=== PATIENT | female | born 1935 | race Caucasian/White ===

== ENCOUNTER 2017-07-28 14:26 | Inpatient (IN) ==
[2017-07-28] MEDS ORDERED: FUROSEMIDE 20 MG/2 ML VIAL IV PRN (14:37)
[2017-07-28] MEDS ORDERED: SODIUM CHLORIDE 0.9% 250 ML IV PRN (14:37)
[2017-07-28] MEDS ORDERED: DEXTROSE 50% 25 GM/50 ML VIAL IV PRN (14:37)
[2017-07-28] MEDS ORDERED: ONDANSETRON 4 MG/2 ML VIAL IV PRN (14:37)
[2017-07-28] MEDS ORDERED: GLUCAGON 1 MG VIAL IM PRN (14:37)
[2017-07-28] MEDS ORDERED: ACETAMINOPHEN 325 MG TABLET PO PRN (14:37)
[2017-07-28] MEDS: INSULIN LISPRO 100 UNIT/ML SUBCUT SCH ×2 (17:45→20:39)
[2017-07-28] MEDS ORDERED: NITROGLYCERIN SL 0.4 MG TABLET SL PRN (17:56)
[2017-07-28] MEDS ORDERED: traMADol 50 MG TABLET PO PRN (17:56)
[2017-07-28] MEDS: TORSEMIDE 20 MG TABLET PO SCH (20:39)
[2017-07-28] MEDS: INSULIN GLARGINE 100 UNIT/ML SUBCUT SCH (20:39)
[2017-07-28] MEDS: FLUTICASONE/SALMETEROL 500-50 DISKUS 14 DOSE INH SCH (20:39)
[2017-07-28] MEDS: DOCUSATE SODIUM 100 MG CAPSULE PO SCH (20:39)
[2017-07-28] MEDS: ATORVASTATIN 40 MG TABLET PO SCH (20:39)
[2017-07-28] MEDS ORDERED: NON-FORMULARY MEDICATION (Esomeprazole Magnesium [Nexium] 40 MG) PO SCH (21:00)
[2017-07-28] MEDS: METOPROLOL SUCCINATE XL 50 MG TABLET PO SCH (21:07)
[2017-07-29] MEDS: GABAPENTIN 100 MG CAPSULE PO PRN ×3 (01:27→20:45)
[2017-07-29 02:50] LABS: Basophils % 0.3 % (0.0-0.8); Eosinophils # 0.2 10*3/uL (0.0-0.87); Immature Granulocytes % 0.5 %; Immature Granulocytes Absolute 0.04 #; Lymphocytes # 1.5 10*3/uL (1.4-4.0); Lymphocytes % 20.5 % (21.3-54.2); Mean Corpuscular HGB Conc 31.6 GM/DL (32-36); Mean Corpuscular Hemoglobin 31 PG (27-34); Mean Corpuscular Volume 99.5 FL (87-102); Mean Platelet Volume 11.4 FL (9.6-12.0); Monocytes # 0.8 10*3/uL (0.11-0.8); Monocytes % 10.8 % (1.7-12.7); Neutrophils # 4.9 10*3/uL (1.4-7.4); Neutrophils % 65.9 % (38.7-73.9); Platelet Count 212 T/CUMM (130-400); Red Blood Count 1.91 MC/CUMM (3.8-5.5); Red Cell Distribution Width 16.4 % (9.3-17.3); White Blood Count 7.4 T/CUMM (4-12)
[2017-07-29 03:24] LABS: Calcium 8.1 MG/DL (8.5-10.1); Potassium 4.6 MMOL/L (3.5-5.1)
[2017-07-29] MEDS: LEVOTHYROXINE 75 MCG TABLET PO SCH (06:36)
[2017-07-29] MEDS: INSULIN LISPRO 100 UNIT/ML SUBCUT SCH ×8 (08:07→20:20)
[2017-07-29] MEDS: FERROUS SULFATE 325 MG TABLET PO SCH (09:05)
[2017-07-29] MEDS: MAGNESIUM OXIDE 400 MG TABLET PO SCH (09:05)
[2017-07-29] MEDS: DOCUSATE SODIUM 100 MG CAPSULE PO SCH ×2 (09:06→20:19)
[2017-07-29] MEDS: METOPROLOL SUCCINATE XL 50 MG TABLET PO SCH ×3 (09:06→20:35)
[2017-07-29] MEDS: FEBUXOSTAT 80 MG TABLET PO SCH (09:06)
[2017-07-29] MEDS: DILTIAZEM CD 120 MG CAPSULE PO SCH (09:06)
[2017-07-29] MEDS: ASCORBIC ACID 500 MG TABLET PO SCH (09:06)
[2017-07-29] MEDS: CALCIUM (CARBONATE) 500 MG TABLET PO SCH (09:06)
[2017-07-29] MEDS: MULTIVITAMIN (OCUVITE) TABLET PO SCH (09:07)
[2017-07-29] MEDS: PANTOPRAZOLE 40 MG TABLET PO SCH (09:07)
[2017-07-29] MEDS: INSULIN GLARGINE 100 UNIT/ML SUBCUT SCH ×2 (09:07→20:35)
[2017-07-29] MEDS: ISOSORBIDE MONONITRATE 30 MG TABLET PO SCH (09:07)
[2017-07-29] MEDS: SPIRONOLACTONE 25 MG TABLET PO SCH (09:07)
[2017-07-29] MEDS: FLUTICASONE/SALMETEROL 500-50 DISKUS 14 DOSE INH SCH ×2 (09:09→20:35)
[2017-07-29] MEDS: TORSEMIDE 20 MG TABLET PO SCH ×2 (09:09→20:34)
[2017-07-29] MEDS: ATORVASTATIN 40 MG TABLET PO SCH (20:35)
[2017-07-30 05:40] LABS: Basophils % 0.5 % (0.0-0.8); Eosinophils # 0.2 10*3/uL (0.0-0.87); Eosinophils % 3.4 % (0.00-10.9); Hematocrit 23.8 VOL% (35.7-47.0); Immature Granulocytes % 0.5 %; Immature Granulocytes Absolute 0.03 #; Lymphocytes # 1.2 10*3/uL (1.4-4.0); Mean Corpuscular HGB Conc 31.9 GM/DL (32-36); Mean Corpuscular Hemoglobin 30 PG (27-34); Mean Corpuscular Volume 94.8 FL (87-102); Mean Platelet Volume 11.1 FL (9.6-12.0); Monocytes # 0.7 10*3/uL (0.11-0.8); Monocytes % 11.8 % (1.7-12.7); Neutrophils # 3.7 10*3/uL (1.4-7.4); Neutrophils % 62.8 % (38.7-73.9); Platelet Count 180 T/CUMM (130-400); White Blood Count 5.9 T/CUMM (4-12)
[2017-07-30 06:07] LABS: Calcium 7.8 MG/DL (8.5-10.1); Osmolality,Calculated 296.4 MOS/KG (273-304); Potassium 4.2 MMOL/L (3.5-5.1)
[2017-07-30 06:14] LABS: Hemoglobin 7.6 GM/DL (12.0-16.0); Red Blood Count 2.51 MC/CUMM (3.8-5.5)
[2017-07-30] MEDS: LEVOTHYROXINE 75 MCG TABLET PO SCH (06:20)
[2017-07-30] MEDS: INSULIN GLARGINE 100 UNIT/ML SUBCUT SCH ×2 (07:44→21:14)
[2017-07-30] MEDS: INSULIN LISPRO 100 UNIT/ML SUBCUT SCH ×7 (07:53→21:14)
[2017-07-30] MEDS: FEBUXOSTAT 80 MG TABLET PO SCH (09:46)
[2017-07-30] MEDS: MAGNESIUM OXIDE 400 MG TABLET PO SCH (09:47)
[2017-07-30] MEDS: CALCIUM (CARBONATE) 500 MG TABLET PO SCH (09:47)
[2017-07-30] MEDS: MULTIVITAMIN (OCUVITE) TABLET PO SCH (09:49)
[2017-07-30] MEDS: FERROUS SULFATE 325 MG TABLET PO SCH (09:50)
[2017-07-30] MEDS: SPIRONOLACTONE 25 MG TABLET PO SCH (09:50)
[2017-07-30] MEDS: GABAPENTIN 100 MG CAPSULE PO PRN (09:50)
[2017-07-30] MEDS: ISOSORBIDE MONONITRATE 30 MG TABLET PO SCH (09:51)
[2017-07-30] MEDS: DILTIAZEM CD 120 MG CAPSULE PO SCH (09:52)
[2017-07-30] MEDS: PANTOPRAZOLE 40 MG TABLET PO SCH (09:54)
[2017-07-30] MEDS: DOCUSATE SODIUM 100 MG CAPSULE PO SCH ×2 (09:54→20:48)
[2017-07-30] MEDS: ASCORBIC ACID 500 MG TABLET PO SCH (09:59)
[2017-07-30] MEDS: METOPROLOL SUCCINATE XL 50 MG TABLET PO SCH ×3 (10:00→20:48)
[2017-07-30] MEDS: FLUTICASONE/SALMETEROL 500-50 DISKUS 14 DOSE INH SCH ×2 (10:01→20:55)
[2017-07-30] MEDS: TORSEMIDE 20 MG TABLET PO SCH ×2 (13:10→20:54)
[2017-07-30] MEDS ORDERED: SODIUM CHLORIDE 0.9% 250 ML IV PRN (13:56)
[2017-07-30] MEDS ORDERED: FUROSEMIDE 20 MG/2 ML VIAL IV ONE (13:57)
[2017-07-30 18:44] LABS: Apearance,Urine CLEAR (Clear); Bilirubin,Urine Negative (Negative); Blood, Urine Negative (Negative); Glucose,Urine (UA) Negative (Negative); Ketones,Urine Negative (Negative); Mucus,Urine Occasional /LPF (Occasional); Nitrite,Urine Negative (Negative); Protein,Urine Negative; RBC,Urine <1 /HPF (0-4); Squamous Epithelial Cell,Urine Occasional /HPF (0-10); Urine Color Yellow (Yellow); Urine Specific Gravity 1.006 (1.001-1.035); Urine Urobilinogen < 2.0 EU/DL (0.2-1.0); WBC,Urine 1 /HPF (0-6)
[2017-07-30] MEDS: ATORVASTATIN 40 MG TABLET PO SCH (20:48)
[2017-07-31 05:27] LABS: Basophils % 0.5 % (0.0-0.8); Eosinophils # 0.2 10*3/uL (0.0-0.87); Eosinophils % 4.1 % (0.00-10.9); Hematocrit 23.5 VOL% (35.7-47.0); Hemoglobin 7.6 GM/DL (12.0-16.0); Immature Granulocytes % 0.4 %; Immature Granulocytes Absolute 0.02 #; Lymphocytes # 1.3 10*3/uL (1.4-4.0); Lymphocytes % 22.5 % (21.3-54.2); Mean Corpuscular HGB Conc 32.3 GM/DL (32-36); Mean Corpuscular Hemoglobin 31 PG (27-34); Mean Corpuscular Volume 95.5 FL (87-102); Mean Platelet Volume 11.1 FL (9.6-12.0); Monocytes # 0.6 10*3/uL (0.11-0.8); Monocytes % 10.8 % (1.7-12.7); Neutrophils # 3.5 10*3/uL (1.4-7.4); Neutrophils % 61.7 % (38.7-73.9); Platelet Count 178 T/CUMM (130-400); Red Blood Count 2.46 MC/CUMM (3.8-5.5); Red Cell Distribution Width 16.9 % (9.3-17.3); White Blood Count 5.7 T/CUMM (4-12)
[2017-07-31 05:54] LABS: Calcium 8.5 MG/DL (8.5-10.1); Osmolality,Calculated 294.4 MOS/KG (273-304); Potassium 4.3 MMOL/L (3.5-5.1)
[2017-07-31 06:03] LABS: Free T4 (Free Thyroxine) 0.99 NG/DL (0.76-1.46); Thyroid Stimulating Hormone 14.5 uIU/ml (0.358-3.74)
[2017-07-31] MEDS: LEVOTHYROXINE 75 MCG TABLET PO SCH (07:12)
[2017-07-31] MEDS: INSULIN GLARGINE 100 UNIT/ML SUBCUT SCH ×2 (07:30→20:58)
[2017-07-31] MEDS: INSULIN LISPRO 100 UNIT/ML SUBCUT SCH ×7 (07:30→21:05)
[2017-07-31] MEDS: MULTIVITAMIN (OCUVITE) TABLET PO SCH (09:01)
[2017-07-31] MEDS: FEXOFENADINE 180 MG TABLET PO PRN (09:01)
[2017-07-31] MEDS: MAGNESIUM OXIDE 400 MG TABLET PO SCH (09:01)
[2017-07-31] MEDS: ISOSORBIDE MONONITRATE 30 MG TABLET PO SCH (09:02)
[2017-07-31] MEDS: CALCIUM (CARBONATE) 500 MG TABLET PO SCH (09:02)
[2017-07-31] MEDS: ASCORBIC ACID 500 MG TABLET PO SCH (09:02)
[2017-07-31] MEDS: SPIRONOLACTONE 25 MG TABLET PO SCH (09:03)
[2017-07-31] MEDS: METOPROLOL SUCCINATE XL 50 MG TABLET PO SCH ×3 (09:03→20:57)
[2017-07-31] MEDS: PANTOPRAZOLE 40 MG TABLET PO SCH (09:03)
[2017-07-31] MEDS: FEBUXOSTAT 80 MG TABLET PO SCH (09:03)
[2017-07-31] MEDS: FLUTICASONE/SALMETEROL 500-50 DISKUS 14 DOSE INH SCH ×2 (09:04→20:58)
[2017-07-31] MEDS: DOCUSATE SODIUM 100 MG CAPSULE PO SCH ×2 (09:04→20:58)
[2017-07-31] MEDS: FERROUS SULFATE 325 MG TABLET PO SCH (09:04)
[2017-07-31] MEDS: DILTIAZEM CD 120 MG CAPSULE PO SCH (09:05)
[2017-07-31] MEDS ORDERED: FUROSEMIDE 20 MG/2 ML VIAL IV ONE (10:00)
[2017-07-31] MEDS: TORSEMIDE 20 MG TABLET PO SCH ×2 (12:08→20:57)
[2017-07-31 20:13] LABS: Hematocrit 29.6 VOL% (35.7-47.0)
[2017-07-31 20:17] LABS: Hemoglobin 9.6 GM/DL (12.0-16.0)
[2017-07-31] MEDS: GABAPENTIN 100 MG CAPSULE PO PRN (20:57)
[2017-07-31] MEDS: ATORVASTATIN 40 MG TABLET PO SCH (20:58)
[2017-08-01 03:03] LABS: Basophils % 0.5 % (0.0-0.8); Eosinophils # 0.3 10*3/uL (0.0-0.87); Eosinophils % 4.1 % (0.00-10.9); Hematocrit 29.7 VOL% (35.7-47.0); Hemoglobin 9.7 GM/DL (12.0-16.0); Immature Granulocytes % 0.5 %; Immature Granulocytes Absolute 0.04 #; Lymphocytes # 1.5 10*3/uL (1.4-4.0); Lymphocytes % 19.2 % (21.3-54.2); Mean Corpuscular HGB Conc 32.7 GM/DL (32-36); Mean Corpuscular Hemoglobin 31 PG (27-34); Mean Platelet Volume 11.2 FL (9.6-12.0); Monocytes # 0.8 10*3/uL (0.11-0.8); Monocytes % 9.8 % (1.7-12.7); Neutrophils # 5.1 10*3/uL (1.4-7.4); Neutrophils % 65.9 % (38.7-73.9); Platelet Count 197 T/CUMM (130-400); Red Blood Count 3.16 MC/CUMM (3.8-5.5); Red Cell Distribution Width 17.3 % (9.3-17.3); White Blood Count 7.8 T/CUMM (4-12)
[2017-08-01 03:19] LABS: Calcium 8.5 MG/DL (8.5-10.1); Osmolality,Calculated 292.5 MOS/KG (273-304); Potassium 4.6 MMOL/L (3.5-5.1)
[2017-08-01] MEDS: INSULIN LISPRO 100 UNIT/ML SUBCUT SCH ×7 (07:48→20:47)
[2017-08-01] MEDS: METOPROLOL SUCCINATE XL 50 MG TABLET PO SCH ×3 (08:37→20:45)
[2017-08-01] MEDS: INSULIN GLARGINE 100 UNIT/ML SUBCUT SCH ×2 (09:01→20:45)
[2017-08-01] MEDS ORDERED: PROPOFOL 200 MG/20 ML VIAL IV ONE (12:17)
[2017-08-01] MEDS ORDERED: LIDOCAINE 2% 5 ML VIAL ONE (12:17)
[2017-08-01] MEDS: TORSEMIDE 20 MG TABLET PO SCH ×2 (12:32→20:45)
[2017-08-01] MEDS: FLUTICASONE/SALMETEROL 500-50 DISKUS 14 DOSE INH SCH ×3 (12:32→20:47)
[2017-08-01] MEDS: LEVOTHYROXINE 75 MCG TABLET PO SCH (13:43)
[2017-08-01] MEDS: DOCUSATE SODIUM 100 MG CAPSULE PO SCH ×2 (14:11→20:51)
[2017-08-01] MEDS: FEBUXOSTAT 80 MG TABLET PO SCH (14:15)
[2017-08-01] MEDS: MAGNESIUM OXIDE 400 MG TABLET PO SCH (14:16)
[2017-08-01] MEDS: CALCIUM (CARBONATE) 500 MG TABLET PO SCH (14:16)
[2017-08-01] MEDS: MULTIVITAMIN (OCUVITE) TABLET PO SCH (14:16)
[2017-08-01] MEDS: ASCORBIC ACID 500 MG TABLET PO SCH (14:16)
[2017-08-01] MEDS: SPIRONOLACTONE 25 MG TABLET PO SCH (14:17)
[2017-08-01] MEDS: DILTIAZEM CD 120 MG CAPSULE PO SCH (14:17)
[2017-08-01] MEDS: ISOSORBIDE MONONITRATE 30 MG TABLET PO SCH (14:17)
[2017-08-01] MEDS: FERROUS SULFATE 325 MG TABLET PO SCH (14:17)
[2017-08-01] MEDS: PANTOPRAZOLE 40 MG TABLET PO SCH (14:17)
[2017-08-01] MEDS: ATORVASTATIN 40 MG TABLET PO SCH (20:45)
[2017-08-01] MEDS: FEXOFENADINE 180 MG TABLET PO PRN (20:50)
[2017-08-02] MEDS: LEVOTHYROXINE 75 MCG TABLET PO SCH (06:31)
[2017-08-02 06:58] LABS: Basophils % 0.4 % (0.0-0.8); Eosinophils # 0.4 10*3/uL (0.0-0.87); Eosinophils % 3.4 % (0.00-10.9); Hematocrit 29.9 VOL% (35.7-47.0); Hemoglobin 9.6 GM/DL (12.0-16.0); Immature Granulocytes % 0.6 %; Immature Granulocytes Absolute 0.06 #; Lymphocytes # 1.4 10*3/uL (1.4-4.0); Lymphocytes % 13.9 % (21.3-54.2); Mean Corpuscular HGB Conc 32.1 GM/DL (32-36); Mean Corpuscular Hemoglobin 31 PG (27-34); Mean Corpuscular Volume 94.9 FL (87-102); Mean Platelet Volume 11.2 FL (9.6-12.0); Monocytes # 0.9 10*3/uL (0.11-0.8); Monocytes % 8.9 % (1.7-12.7); Neutrophils # 7.5 10*3/uL (1.4-7.4); Neutrophils % 72.8 % (38.7-73.9); Platelet Count 183 T/CUMM (130-400); Red Blood Count 3.15 MC/CUMM (3.8-5.5); Red Cell Distribution Width 17.1 % (9.3-17.3); White Blood Count 10.3 T/CUMM (4-12)
[2017-08-02 07:33] LABS: Calcium 8.3 MG/DL (8.5-10.1); Osmolality,Calculated 290.5 MOS/KG (273-304); Potassium 4.3 MMOL/L (3.5-5.1)
[2017-08-02] MEDS: INSULIN LISPRO 100 UNIT/ML SUBCUT SCH ×4 (08:45→13:46)
[2017-08-02] MEDS: DOCUSATE SODIUM 100 MG CAPSULE PO SCH (09:48)
[2017-08-02] MEDS: CALCIUM (CARBONATE) 500 MG TABLET PO SCH (09:50)
[2017-08-02] MEDS: SPIRONOLACTONE 25 MG TABLET PO SCH (09:51)
[2017-08-02] MEDS: INSULIN GLARGINE 100 UNIT/ML SUBCUT SCH (09:51)
[2017-08-02] MEDS: METOPROLOL SUCCINATE XL 50 MG TABLET PO SCH (09:52)
[2017-08-02] MEDS: ISOSORBIDE MONONITRATE 30 MG TABLET PO SCH (09:52)
[2017-08-02] MEDS: PANTOPRAZOLE 40 MG TABLET PO SCH (09:53)
[2017-08-02] MEDS: FERROUS SULFATE 325 MG TABLET PO SCH (09:54)
[2017-08-02] MEDS: ASCORBIC ACID 500 MG TABLET PO SCH (09:54)
[2017-08-02] MEDS: DILTIAZEM CD 120 MG CAPSULE PO SCH (09:55)
[2017-08-02] MEDS: TORSEMIDE 20 MG TABLET PO SCH (09:55)
[2017-08-02] MEDS: FEBUXOSTAT 80 MG TABLET PO SCH (09:56)
[2017-08-02] MEDS: MULTIVITAMIN (OCUVITE) TABLET PO SCH (09:56)
[2017-08-02] MEDS: MAGNESIUM OXIDE 400 MG TABLET PO SCH (09:56)
[2017-08-02] MEDS: FLUTICASONE/SALMETEROL 500-50 DISKUS 14 DOSE INH SCH (09:58)
[2017-08-02 11:55] VITALS: BP 109/78
== END 2017-08-02 13:05 | disposition home health service (06) | DRG 300 ==
LOC: N.CC 15:25 → N.4E 07-29 16:00
PROVIDERS: ADMIT Internal Medicine; ATTEND Internal Medicine

== ENCOUNTER 2017-09-05 15:29 | Inpatient (IN) ==
[2017-09-05] MEDS ORDERED: GLUCAGON 1 MG VIAL IM PRN (15:38)
[2017-09-05] MEDS ORDERED: ONDANSETRON 4 MG/2 ML VIAL IV PRN (15:38)
[2017-09-05] MEDS ORDERED: DEXTROSE 50% 25 GM/50 ML VIAL IV PRN (15:38)
[2017-09-05] MEDS ORDERED: SODIUM CHLORIDE 0.9% 1,000 ML IV PRN (15:40)
[2017-09-05] MEDS ORDERED: FUROSEMIDE 40 MG/4 ML VIAL IV PRN (15:40)
[2017-09-05] MEDS ORDERED: FUROSEMIDE 40 MG/4 ML VIAL IV ONE (15:42)
[2017-09-05] MEDS: FUROSEMIDE 40 MG/4 ML VIAL IV SCH (17:06)
[2017-09-05] MEDS: INSULIN LISPRO 100 UNIT/ML SUBCUT SCH ×2 (17:06→21:24)
[2017-09-05] MEDS ORDERED: NITROGLYCERIN SL 0.4 MG TABLET SL PRN (18:01)
[2017-09-05] MEDS ORDERED: FEXOFENADINE 180 MG TABLET PO PRN (18:01)
[2017-09-05] MEDS ORDERED: traMADol 50 MG TABLET PO PRN (18:01)
[2017-09-05 19:05] LABS: Troponin I Only < 0.015 NG/ML (0.00-0.045)
[2017-09-05 19:52] LABS: Free T4 (Free Thyroxine) 1.09 NG/DL (0.76-1.46); Thyroid Stimulating Hormone 17.7 uIU/ml (0.358-3.74)
[2017-09-05] MEDS: ATORVASTATIN 40 MG TABLET PO SCH (21:23)
[2017-09-05] MEDS: PANTOPRAZOLE 40 MG TABLET PO SCH (21:23)
[2017-09-05] MEDS: METOPROLOL SUCCINATE XL 50 MG TABLET PO SCH (21:23)
[2017-09-05] MEDS: INSULIN GLARGINE 100 UNIT/ML SUBCUT SCH (21:24)
[2017-09-05] MEDS: DOCUSATE SODIUM 100 MG CAPSULE PO SCH (21:24)
[2017-09-05] MEDS: FLUTICASONE/SALMETEROL 500-50 DISKUS 14 DOSE INH SCH (21:24)
[2017-09-05] MEDS: GABAPENTIN 100 MG CAPSULE PO PRN (21:27)
[2017-09-06 03:26] LABS: Basophils % 0.7 % (0.0-0.8); Eosinophils # 0.2 10*3/uL (0.0-0.87); Eosinophils % 3.4 % (0.00-10.9); Hematocrit 21.4 VOL% (35.7-47.0); Hemoglobin 6.8 GM/DL (12.0-16.0); Immature Granulocytes % 0.2 %; Immature Granulocytes Absolute 0.01 #; Mean Corpuscular HGB Conc 31.8 GM/DL (32-36); Mean Corpuscular Hemoglobin 32 PG (27-34); Mean Corpuscular Volume 99.5 FL (87-102); Mean Platelet Volume 9.9 FL (9.6-12.0); Monocytes # 0.4 10*3/uL (0.11-0.8); Monocytes % 9.8 % (1.7-12.7); Neutrophils # 2.8 10*3/uL (1.4-7.4); Neutrophils % 62.9 % (38.7-73.9); Platelet Count 138 T/CUMM (130-400); Red Blood Count 2.15 MC/CUMM (3.8-5.5); Red Cell Distribution Width 15.4 % (9.3-17.3); White Blood Count 4.5 T/CUMM (4-12)
[2017-09-06 03:43] LABS: Calcium 8.3 MG/DL (8.5-10.1); Osmolality,Calculated 293.8 MOS/KG (273-304); Potassium 4.1 MMOL/L (3.5-5.1)
[2017-09-06 03:48] LABS: Troponin I Only < 0.015 NG/ML (0.00-0.045)
[2017-09-06] MEDS ORDERED: LEVOTHYROXINE 75 MCG TABLET PO SCH (06:30)
[2017-09-06] MEDS: INSULIN LISPRO 100 UNIT/ML SUBCUT SCH ×7 (08:50→21:24)
[2017-09-06] MEDS: DILTIAZEM CD 120 MG CAPSULE PO SCH (08:51)
[2017-09-06] MEDS: CALCIUM (CARBONATE) 500 MG TABLET PO SCH (08:52)
[2017-09-06] MEDS: SPIRONOLACTONE 25 MG TABLET PO SCH (08:53)
[2017-09-06] MEDS: MULTIVITAMIN (OCUVITE) TABLET PO SCH (08:53)
[2017-09-06] MEDS: ISOSORBIDE MONONITRATE 30 MG TABLET PO SCH (08:53)
[2017-09-06] MEDS: FEBUXOSTAT 80 MG TABLET PO SCH (08:53)
[2017-09-06] MEDS: MAGNESIUM OXIDE 400 MG TABLET PO SCH (08:53)
[2017-09-06] MEDS: ASCORBIC ACID 500 MG TABLET PO SCH (08:54)
[2017-09-06] MEDS: GABAPENTIN 100 MG CAPSULE PO PRN ×3 (08:54→21:23)
[2017-09-06] MEDS: METOPROLOL SUCCINATE XL 50 MG TABLET PO SCH ×3 (08:54→21:23)
[2017-09-06] MEDS: PANTOPRAZOLE 40 MG TABLET PO SCH ×3 (08:54→21:24)
[2017-09-06] MEDS ORDERED: FERROUS SULFATE 325 MG TABLET PO SCH (09:00)
[2017-09-06] MEDS: INSULIN GLARGINE 100 UNIT/ML SUBCUT SCH ×2 (09:01→21:23)
[2017-09-06] MEDS: FUROSEMIDE 40 MG/4 ML VIAL IV SCH ×2 (09:01→16:34)
[2017-09-06] MEDS: FLUTICASONE/SALMETEROL 500-50 DISKUS 14 DOSE INH SCH ×2 (09:06→21:24)
[2017-09-06] MEDS: DOCUSATE SODIUM 100 MG CAPSULE PO SCH ×2 (09:06→21:24)
[2017-09-06 16:51] LABS: Hematocrit 27.3 VOL% (35.7-47.0); Hemoglobin 8.9 GM/DL (12.0-16.0)
[2017-09-06] MEDS: ATORVASTATIN 40 MG TABLET PO SCH (21:23)
[2017-09-07 05:22] LABS: Basophils % 0.4 % (0.0-0.8); Eosinophils # 0.2 10*3/uL (0.0-0.87); Eosinophils % 4.5 % (0.00-10.9); Hematocrit 27.5 VOL% (35.7-47.0); Hemoglobin 8.8 GM/DL (12.0-16.0); Immature Granulocytes % 0.2 %; Immature Granulocytes Absolute 0.01 #; Lymphocytes % 20.4 % (21.3-54.2); Mean Corpuscular Hemoglobin 31 PG (27-34); Mean Corpuscular Volume 97.9 FL (87-102); Mean Platelet Volume 10.4 FL (9.6-12.0); Monocytes # 0.5 10*3/uL (0.11-0.8); Monocytes % 10.8 % (1.7-12.7); Neutrophils # 3.1 10*3/uL (1.4-7.4); Neutrophils % 63.7 % (38.7-73.9); Platelet Count 140 T/CUMM (130-400); Red Blood Count 2.81 MC/CUMM (3.8-5.5); Red Cell Distribution Width 15.7 % (9.3-17.3); White Blood Count 4.9 T/CUMM (4-12)
[2017-09-07 05:45] LABS: Calcium 8.8 MG/DL (8.5-10.1); Osmolality,Calculated 289.8 MOS/KG (273-304); Potassium 4.2 MMOL/L (3.5-5.1)
[2017-09-07] MEDS: FUROSEMIDE 40 MG/4 ML VIAL IV SCH ×2 (07:32→10:00)
[2017-09-07] MEDS ORDERED: FUROSEMIDE 40 MG/4 ML VIAL ONE (09:54)
[2017-09-07] MEDS: METOPROLOL SUCCINATE XL 50 MG TABLET PO SCH ×3 (10:05→21:10)
[2017-09-07] MEDS: MULTIVITAMIN (OCUVITE) TABLET PO SCH (10:06)
[2017-09-07] MEDS: FERROUS SULFATE 325 MG TABLET PO SCH ×2 (10:06→21:09)
[2017-09-07] MEDS: CALCIUM (CARBONATE) 500 MG TABLET PO SCH (10:07)
[2017-09-07] MEDS: DILTIAZEM CD 120 MG CAPSULE PO SCH (10:08)
[2017-09-07] MEDS: MAGNESIUM OXIDE 400 MG TABLET PO SCH (10:09)
[2017-09-07] MEDS: ASCORBIC ACID 500 MG TABLET PO SCH (10:09)
[2017-09-07] MEDS: ISOSORBIDE MONONITRATE 30 MG TABLET PO SCH (10:10)
[2017-09-07] MEDS: FEBUXOSTAT 80 MG TABLET PO SCH (10:11)
[2017-09-07] MEDS: SPIRONOLACTONE 25 MG TABLET PO SCH (10:12)
[2017-09-07] MEDS: GABAPENTIN 100 MG CAPSULE PO PRN ×2 (10:15→21:18)
[2017-09-07] MEDS: INSULIN LISPRO 100 UNIT/ML SUBCUT SCH ×7 (11:06→21:11)
[2017-09-07] MEDS: DOCUSATE SODIUM 100 MG CAPSULE PO SCH ×2 (11:07→21:10)
[2017-09-07] MEDS: PANTOPRAZOLE 40 MG TABLET PO SCH ×4 (11:07→22:17)
[2017-09-07] MEDS: INSULIN GLARGINE 100 UNIT/ML SUBCUT SCH ×2 (11:08→21:11)
[2017-09-07] MEDS: FLUTICASONE/SALMETEROL 500-50 DISKUS 14 DOSE INH SCH ×2 (11:46→21:12)
[2017-09-07] MEDS: LEVOTHYROXINE 100 MCG TABLET PO SCH (11:47)
[2017-09-07] MEDS: FUROSEMIDE 80 MG TABLET PO SCH (15:36)
[2017-09-07] MEDS: ATORVASTATIN 40 MG TABLET PO SCH (21:09)
[2017-09-07 22:40] LABS: Hematocrit 33.9 VOL% (35.7-47.0)
[2017-09-07 22:41] LABS: Hemoglobin 10.9 GM/DL (12.0-16.0)
[2017-09-08 05:25] LABS: Basophils % 0.7 % (0.0-0.8); Eosinophils # 0.3 10*3/uL (0.0-0.87); Eosinophils % 4.2 % (0.00-10.9); Hematocrit 32.5 VOL% (35.7-47.0); Hemoglobin 10.6 GM/DL (12.0-16.0); Immature Granulocytes % 0.5 %; Immature Granulocytes Absolute 0.03 #; Lymphocytes # 1.1 10*3/uL (1.4-4.0); Lymphocytes % 18.5 % (21.3-54.2); Mean Corpuscular HGB Conc 32.6 GM/DL (32-36); Mean Corpuscular Hemoglobin 32 PG (27-34); Mean Platelet Volume 10.1 FL (9.6-12.0); Monocytes # 0.6 10*3/uL (0.11-0.8); Monocytes % 10.4 % (1.7-12.7); Neutrophils # 3.9 10*3/uL (1.4-7.4); Neutrophils % 65.7 % (38.7-73.9); Platelet Count 134 T/CUMM (130-400); Red Blood Count 3.35 MC/CUMM (3.8-5.5)
[2017-09-08 05:51] LABS: Calcium 8.5 MG/DL (8.5-10.1); Osmolality,Calculated 294.4 MOS/KG (273-304)
[2017-09-08] MEDS: LEVOTHYROXINE 100 MCG TABLET PO SCH (05:57)
[2017-09-08] MEDS ORDERED: LEVOFLOXACIN 500 MG TABLET PO ONE (08:13)
[2017-09-08] MEDS: INSULIN LISPRO 100 UNIT/ML SUBCUT SCH ×7 (08:54→22:06)
[2017-09-08] MEDS: FUROSEMIDE 80 MG TABLET PO SCH ×2 (08:56→16:36)
[2017-09-08] MEDS: MAGNESIUM OXIDE 400 MG TABLET PO SCH (08:56)
[2017-09-08] MEDS: methylPREDNISolone SOD SUC 40 MG/1 ML VIAL IV SCH ×3 (08:56→23:31)
[2017-09-08] MEDS: PANTOPRAZOLE 40 MG TABLET PO SCH ×3 (08:56→21:58)
[2017-09-08] MEDS: METOPROLOL SUCCINATE XL 50 MG TABLET PO SCH ×3 (08:56→22:26)
[2017-09-08] MEDS: GABAPENTIN 100 MG CAPSULE PO PRN ×2 (08:56→22:03)
[2017-09-08] MEDS: CALCIUM (CARBONATE) 500 MG TABLET PO SCH (08:57)
[2017-09-08] MEDS: ISOSORBIDE MONONITRATE 30 MG TABLET PO SCH (08:57)
[2017-09-08] MEDS: SPIRONOLACTONE 25 MG TABLET PO SCH (08:57)
[2017-09-08] MEDS: FERROUS SULFATE 325 MG TABLET PO SCH ×2 (08:57→21:58)
[2017-09-08] MEDS: FEBUXOSTAT 80 MG TABLET PO SCH (08:58)
[2017-09-08] MEDS: INSULIN GLARGINE 100 UNIT/ML SUBCUT SCH ×2 (08:58→22:07)
[2017-09-08] MEDS: MULTIVITAMIN (OCUVITE) TABLET PO SCH (08:58)
[2017-09-08] MEDS: ASCORBIC ACID 500 MG TABLET PO SCH (08:58)
[2017-09-08] MEDS: DILTIAZEM CD 120 MG CAPSULE PO SCH (08:58)
[2017-09-08] MEDS: FLUTICASONE/SALMETEROL 500-50 DISKUS 14 DOSE INH SCH ×2 (08:59→21:59)
[2017-09-08] MEDS ORDERED: ALBUTEROL/IPRATROPIUM 3 ML NEB RESP TX SCH (09:00)
[2017-09-08] MEDS: DOCUSATE SODIUM 100 MG CAPSULE PO SCH ×2 (09:08→22:25)
[2017-09-08] MEDS: ALBUTEROL/IPRATROPIUM 3 ML NEB RESP TX SCH ×2 (13:30→19:43)
[2017-09-08] MEDS: ATORVASTATIN 40 MG TABLET PO SCH (21:58)
[2017-09-08] MEDS: MUPIROCIN 2% OINT 22 GM TUBE TOP SCH (22:06)
[2017-09-09 03:38] LABS: Hematocrit 34.2 VOL% (35.7-47.0); Immature Granulocytes % 0.3 %; Immature Granulocytes Absolute 0.01 #; Lymphocytes # 0.4 10*3/uL (1.4-4.0); Lymphocytes % 8.9 % (21.3-54.2); Mean Corpuscular HGB Conc 32.2 GM/DL (32-36); Mean Corpuscular Hemoglobin 31 PG (27-34); Mean Corpuscular Volume 97.4 FL (87-102); Mean Platelet Volume 10.4 FL (9.6-12.0); Monocytes # 0.1 10*3/uL (0.11-0.8); Monocytes % 2.5 % (1.7-12.7); Neutrophils # 3.5 10*3/uL (1.4-7.4); Neutrophils % 88.3 % (38.7-73.9); Platelet Count 137 T/CUMM (130-400); Red Blood Count 3.51 MC/CUMM (3.8-5.5); Red Cell Distribution Width 14.6 % (9.3-17.3)
[2017-09-09 04:00] LABS: Magnesium 2.4 MG/DL (1.8-2.4); Potassium 4.5 MMOL/L (3.5-5.1)
[2017-09-09] MEDS: LEVOTHYROXINE 100 MCG TABLET PO SCH (06:14)
[2017-09-09] MEDS: ALBUTEROL/IPRATROPIUM 3 ML NEB RESP TX SCH (07:25)
[2017-09-09] MEDS: INSULIN GLARGINE 100 UNIT/ML SUBCUT SCH (08:14)
[2017-09-09] MEDS: INSULIN LISPRO 100 UNIT/ML SUBCUT SCH ×2 (08:14→08:24)
[2017-09-09] MEDS: methylPREDNISolone SOD SUC 40 MG/1 ML VIAL IV SCH (08:15)
[2017-09-09] MEDS: DILTIAZEM CD 120 MG CAPSULE PO SCH (08:17)
[2017-09-09] MEDS: FEBUXOSTAT 80 MG TABLET PO SCH (08:17)
[2017-09-09] MEDS: CALCIUM (CARBONATE) 500 MG TABLET PO SCH (08:18)
[2017-09-09] MEDS: FERROUS SULFATE 325 MG TABLET PO SCH (08:18)
[2017-09-09] MEDS: SPIRONOLACTONE 25 MG TABLET PO SCH (08:18)
[2017-09-09] MEDS: MULTIVITAMIN (OCUVITE) TABLET PO SCH (08:18)
[2017-09-09] MEDS: ISOSORBIDE MONONITRATE 30 MG TABLET PO SCH (08:19)
[2017-09-09] MEDS: METOPROLOL SUCCINATE XL 50 MG TABLET PO SCH (08:19)
[2017-09-09] MEDS: GABAPENTIN 100 MG CAPSULE PO PRN (08:19)
[2017-09-09] MEDS: ASCORBIC ACID 500 MG TABLET PO SCH (08:19)
[2017-09-09] MEDS: DOCUSATE SODIUM 100 MG CAPSULE PO SCH (08:19)
[2017-09-09] MEDS: FUROSEMIDE 80 MG TABLET PO SCH (08:19)
[2017-09-09] MEDS: PANTOPRAZOLE 40 MG TABLET PO SCH (08:19)
[2017-09-09] MEDS: MAGNESIUM OXIDE 400 MG TABLET PO SCH (08:19)
[2017-09-09 08:20] VITALS: BP 106/54
[2017-09-09] MEDS: MUPIROCIN 2% OINT 22 GM TUBE TOP SCH (08:23)
[2017-09-09] MEDS: FLUTICASONE/SALMETEROL 500-50 DISKUS 14 DOSE INH SCH (08:23)
== END 2017-09-09 11:01 | disposition home or self-care (01) | DRG 291 ==
LOC: N.TELEN 16:40
PROVIDERS: ADMIT Internal Medicine; ATTEND Internal Medicine

== ENCOUNTER 2017-11-01 12:18 | Inpatient (IN) ==
[2017-11-01] MEDS ORDERED: SODIUM CHLORIDE 0.9% 500 ML IV STA (12:31)
[2017-11-01] MEDS ORDERED: ONDANSETRON 4 MG/2 ML VIAL IV STA (12:31)
[2017-11-01] MEDS ORDERED: ORPHENADRINE 60 MG/2 ML VIAL IV STA (12:31)
[2017-11-01] MEDS ORDERED: KETOROLAC 30 MG/1 ML VIAL IV STA (12:31)
[2017-11-01] MEDS ORDERED: ORPHENADRINE 60 MG/2 ML VIAL ONE (12:35)
[2017-11-01] MEDS ORDERED: ONDANSETRON 4 MG/2 ML VIAL ONE (12:36)
[2017-11-01] MEDS ORDERED: KETOROLAC 30 MG/1 ML VIAL ONE (12:36)
[2017-11-01 13:36] LABS: Basophils % 0.3 % (0.0-0.8); Eosinophils # 0.1 10*3/uL (0.0-0.87); Hematocrit 20.2 VOL% (35.7-47.0); Hemoglobin 6.6 GM/DL (12.0-16.0); Immature Granulocytes % 0.5 %; Immature Granulocytes Absolute 0.05 #; Lymphocytes # 1.2 10*3/uL (1.4-4.0); Lymphocytes % 12.5 % (21.3-54.2); Mean Corpuscular HGB Conc 32.7 GM/DL (32-36); Mean Corpuscular Hemoglobin 31 PG (27-34); Mean Corpuscular Volume 95.3 FL (87-102); Mean Platelet Volume 11.2 FL (9.6-12.0); Monocytes # 1.1 10*3/uL (0.11-0.8); Monocytes % 11.1 % (1.7-12.7); Neutrophils # 7.4 10*3/uL (1.4-7.4); Neutrophils % 74.6 % (38.7-73.9); Platelet Count 176 T/CUMM (130-400); Red Blood Count 2.12 MC/CUMM (3.8-5.5); Red Cell Distribution Width 14.3 % (9.3-17.3); White Blood Count 9.9 T/CUMM (4-12)
[2017-11-01 13:43] LABS: PT Patient Result 10.9 SECS
[2017-11-01 14:01] LABS: Alanine Aminotransferase 34 U/L (13-56); Albumin 3.4 G/DL (3.4-5.0); Alkaline Phosphatase 85 U/L (45-117); Aspartate Amino Transferase 34 U/L (0-37); Blood Urea Nitrogen 150 MG/DL (7-18); Calcium 9.9 MG/DL (8.5-10.1); Glucose 298 MG/DL (74-106); Osmolality,Calculated 317.9 MOS/KG (273-304); Potassium 3.5 MMOL/L (3.5-5.1); Sodium 129 MMOL/L (136-145); Total Protein 6.8 G/DL (6.4-8.3); Troponin I Only 0.022 NG/ML (0.00-0.045)
[2017-11-01] MEDS ORDERED: ONDANSETRON 4 MG/2 ML VIAL IV PRN (16:10)
[2017-11-01] MEDS ORDERED: METOPROLOL SUCCINATE XL 50 MG TABLET PO SCH (16:10)
[2017-11-01] MEDS ORDERED: ALBUTEROL/IPRATROPIUM 3 ML NEB RESP TX PRN (16:10)
[2017-11-01] MEDS ORDERED: GLUCAGON 1 MG VIAL IM PRN (16:10)
[2017-11-01] MEDS ORDERED: SODIUM CHLORIDE 0.9% 1,000 ML IV PRN (16:10)
[2017-11-01] MEDS ORDERED: DEXTROSE 50% 25 GM/50 ML VIAL IV PRN (16:10)
[2017-11-01] MEDS ORDERED: NITROGLYCERIN SL 0.4 MG TABLET SL PRN (16:34)
[2017-11-01] MEDS ORDERED: ALBUTEROL 2.5 MG/3 ML NEB RESP TX PRN (16:34)
[2017-11-01] MEDS: tiZANidine 4 MG TABLET PO SCH ×2 (17:32→20:48)
[2017-11-01] MEDS: GABAPENTIN 100 MG CAPSULE PO SCH ×2 (17:33→20:48)
[2017-11-01] MEDS: INSULIN REGULAR 100 UNIT/ML SUBCUT SCH ×2 (17:33→20:48)
[2017-11-01] MEDS ORDERED: SODIUM CHLORIDE 0.9% 500 ML IV ONE (18:38)
[2017-11-01] MEDS: NOREPINEPHRINE 8 MG in SODIUM CHLORIDE 0.9% 242 ML IV SCH (20:11)
[2017-11-01] MEDS: INSULIN GLARGINE 100 UNIT/ML SUBCUT SCH (20:48)
[2017-11-01] MEDS: ATORVASTATIN 40 MG TABLET PO SCH (20:48)
[2017-11-01] MEDS: PANTOPRAZOLE 40 MG TABLET PO SCH (20:48)
[2017-11-01] MEDS ORDERED: TORSEMIDE 20 MG TABLET PO SCH (21:00)
[2017-11-01] MEDS: FLUTICASONE/SALMETEROL 500-50 DISKUS 14 DOSE INH SCH (23:06)
[2017-11-02] MEDS: LEVOTHYROXINE 75 MCG TABLET PO SCH (05:41)
[2017-11-02 06:20] LABS: Calcium 8.6 MG/DL (8.5-10.1); Osmolality,Calculated 318.1 MOS/KG (273-304); Potassium 3.6 MMOL/L (3.5-5.1)
[2017-11-02] MEDS: SODIUM CHLORIDE 0.9% 1,000 ML IV SCH ×2 (08:00→23:07)
[2017-11-02 08:21] LABS: Basophils % 0.5 % (0.0-0.8); Mean Corpuscular Volume 95.2 FL (87-102); Red Cell Distribution Width 14.6 % (9.3-17.3)
[2017-11-02 08:27] LABS: Eosinophils # 0.2 10*3/uL (0.0-0.87); Eosinophils % 2.9 % (0.00-10.9); Hematocrit 25.7 VOL% (35.7-47.0); Immature Granulocytes % 0.5 %; Immature Granulocytes Absolute 0.04 #; Lymphocytes % 13.6 % (21.3-54.2); Mean Corpuscular HGB Conc 32.3 GM/DL (32-36); Mean Corpuscular Hemoglobin 31 PG (27-34); Monocytes # 0.9 10*3/uL (0.11-0.8); Monocytes % 11.5 % (1.7-12.7); Neutrophils # 5.4 10*3/uL (1.4-7.4); White Blood Count 7.6 T/CUMM (4-12)
[2017-11-02 08:30] LABS: Hemoglobin 8.3 GM/DL (12.0-16.0); Platelet Count 135 T/CUMM (130-400)
[2017-11-02] MEDS ORDERED: PANTOPRAZOLE 40 MG TABLET PO SCH (09:00)
[2017-11-02] MEDS: INSULIN REGULAR 100 UNIT/ML SUBCUT SCH ×4 (09:24→20:41)
[2017-11-02] MEDS: INSULIN GLARGINE 100 UNIT/ML SUBCUT SCH ×2 (09:25→20:41)
[2017-11-02] MEDS: MAGNESIUM OXIDE 400 MG TABLET PO SCH (09:25)
[2017-11-02] MEDS: FERROUS SULFATE 325 MG TABLET PO SCH (09:26)
[2017-11-02] MEDS: ISOSORBIDE MONONITRATE 30 MG TABLET PO SCH (09:26)
[2017-11-02] MEDS: CALCIUM (CARBONATE) 500 MG TABLET PO SCH (09:26)
[2017-11-02] MEDS: DILTIAZEM CD 120 MG CAPSULE PO SCH (09:26)
[2017-11-02] MEDS: ASCORBIC ACID 500 MG TABLET PO SCH (09:26)
[2017-11-02] MEDS: PANTOPRAZOLE 40 MG TABLET PO SCH ×2 (09:27→20:41)
[2017-11-02] MEDS: GABAPENTIN 100 MG CAPSULE PO SCH ×3 (09:27→20:41)
[2017-11-02] MEDS: FEBUXOSTAT 80 MG TABLET PO SCH (09:27)
[2017-11-02] MEDS: FLUTICASONE/SALMETEROL 500-50 DISKUS 14 DOSE INH SCH ×2 (09:28→20:57)
[2017-11-02] MEDS: tiZANidine 4 MG TABLET PO SCH ×3 (09:28→20:57)
[2017-11-02] MEDS: BACITRACIN OINT 0.9 GM PACK TOP SCH (15:18)
[2017-11-02] MEDS: ATORVASTATIN 40 MG TABLET PO SCH (20:40)
[2017-11-02] MEDS: HYDROmorphone 2 MG/1 ML VIAL IV PRN (20:42)
[2017-11-03 05:08] LABS: Basophils # 0.1 10*3/uL (0.0-0.2); Basophils % 0.4 % (0.0-0.8); Eosinophils # 0.5 10*3/uL (0.0-0.87); Eosinophils % 3.9 % (0.00-10.9); Hematocrit 26.7 VOL% (35.7-47.0); Hemoglobin 8.8 GM/DL (12.0-16.0); Immature Granulocytes % 0.7 %; Immature Granulocytes Absolute 0.08 #; Lymphocytes # 1.6 10*3/uL (1.4-4.0); Lymphocytes % 13.3 % (21.3-54.2); Mean Corpuscular Hemoglobin 31 PG (27-34); Mean Platelet Volume 11.1 FL (9.6-12.0); Monocytes # 1.4 10*3/uL (0.11-0.8); Monocytes % 11.5 % (1.7-12.7); Neutrophils # 8.3 10*3/uL (1.4-7.4); Neutrophils % 70.2 % (38.7-73.9); Platelet Count 183 T/CUMM (130-400); Red Blood Count 2.87 MC/CUMM (3.8-5.5); Red Cell Distribution Width 14.8 % (9.3-17.3); White Blood Count 11.8 T/CUMM (4-12)
[2017-11-03 05:33] LABS: Calcium 8.4 MG/DL (8.5-10.1); Osmolality,Calculated 310.2 MOS/KG (273-304); Potassium 3.7 MMOL/L (3.5-5.1)
[2017-11-03] MEDS: LEVOTHYROXINE 75 MCG TABLET PO SCH (06:36)
[2017-11-03] MEDS: NOREPINEPHRINE 8 MG in SODIUM CHLORIDE 0.9% 242 ML IV SCH ×2 (08:00→22:11)
[2017-11-03] MEDS: BACITRACIN OINT 0.9 GM PACK TOP SCH (09:54)
[2017-11-03] MEDS: FLUTICASONE/SALMETEROL 500-50 DISKUS 14 DOSE INH SCH ×2 (09:54→21:18)
[2017-11-03] MEDS: INSULIN REGULAR 100 UNIT/ML SUBCUT SCH ×4 (09:54→22:08)
[2017-11-03] MEDS: DILTIAZEM CD 120 MG CAPSULE PO SCH (09:55)
[2017-11-03] MEDS: INSULIN GLARGINE 100 UNIT/ML SUBCUT SCH ×2 (10:34→21:16)
[2017-11-03] MEDS: LIDOCAINE 5% PATCH TRANSDERM SCH (10:35)
[2017-11-03] MEDS: GABAPENTIN 100 MG CAPSULE PO SCH ×3 (10:37→21:16)
[2017-11-03] MEDS: ISOSORBIDE MONONITRATE 30 MG TABLET PO SCH (10:37)
[2017-11-03] MEDS: CALCIUM (CARBONATE) 500 MG TABLET PO SCH (10:37)
[2017-11-03] MEDS: ASCORBIC ACID 500 MG TABLET PO SCH (10:37)
[2017-11-03] MEDS: PANTOPRAZOLE 40 MG TABLET PO SCH ×2 (10:38→21:17)
[2017-11-03] MEDS: tiZANidine 4 MG TABLET PO SCH ×3 (10:38→21:17)
[2017-11-03] MEDS: FEBUXOSTAT 80 MG TABLET PO SCH (10:38)
[2017-11-03] MEDS: MAGNESIUM OXIDE 400 MG TABLET PO SCH (10:38)
[2017-11-03] MEDS: FERROUS SULFATE 325 MG TABLET PO SCH (10:38)
[2017-11-03] MEDS: SODIUM CHLORIDE 0.9% 1,000 ML IV SCH ×2 (11:42→12:00)
[2017-11-03] MEDS ORDERED: SODIUM CHLORIDE 0.9% 1,000 ML IV PRN (12:52)
[2017-11-03] MEDS: ATORVASTATIN 40 MG TABLET PO SCH (21:17)
[2017-11-04] MEDS: SODIUM CHLORIDE 0.9% 1,000 ML IV SCH ×3 (01:36→08:04)
[2017-11-04 05:29] LABS: Basophils % 0.4 % (0.0-0.8); Eosinophils # 0.2 10*3/uL (0.0-0.87); Eosinophils % 2.7 % (0.00-10.9); Hematocrit 25.1 VOL% (35.7-47.0); Hemoglobin 8.2 GM/DL (12.0-16.0); Immature Granulocytes % 0.4 %; Immature Granulocytes Absolute 0.03 #; Lymphocytes # 0.9 10*3/uL (1.4-4.0); Lymphocytes % 12.2 % (21.3-54.2); Mean Corpuscular HGB Conc 32.7 GM/DL (32-36); Mean Corpuscular Hemoglobin 31 PG (27-34); Mean Corpuscular Volume 95.8 FL (87-102); Mean Platelet Volume 10.7 FL (9.6-12.0); Monocytes % 13.3 % (1.7-12.7); Neutrophils # 5.2 10*3/uL (1.4-7.4); Platelet Count 154 T/CUMM (130-400); Red Blood Count 2.62 MC/CUMM (3.8-5.5); Red Cell Distribution Width 14.8 % (9.3-17.3); White Blood Count 7.3 T/CUMM (4-12)
[2017-11-04 05:57] LABS: Calcium 7.9 MG/DL (8.5-10.1); Osmolality,Calculated 305.8 MOS/KG (273-304); Potassium 3.8 MMOL/L (3.5-5.1)
[2017-11-04] MEDS: LEVOTHYROXINE 75 MCG TABLET PO SCH (06:16)
[2017-11-04] MEDS: NOREPINEPHRINE 8 MG in SODIUM CHLORIDE 0.9% 242 ML IV SCH ×2 (08:00→22:02)
[2017-11-04] MEDS: INSULIN REGULAR 100 UNIT/ML SUBCUT SCH ×4 (08:00→22:40)
[2017-11-04] MEDS: BACITRACIN OINT 0.9 GM PACK TOP SCH (08:44)
[2017-11-04] MEDS: FLUTICASONE/SALMETEROL 500-50 DISKUS 14 DOSE INH SCH ×2 (08:44→22:41)
[2017-11-04] MEDS: INSULIN GLARGINE 100 UNIT/ML SUBCUT SCH ×2 (08:45→22:39)
[2017-11-04] MEDS: FEBUXOSTAT 80 MG TABLET PO SCH (08:45)
[2017-11-04] MEDS: LIDOCAINE 5% PATCH TRANSDERM SCH (08:45)
[2017-11-04] MEDS: FERROUS SULFATE 325 MG TABLET PO SCH (08:46)
[2017-11-04] MEDS: CALCIUM (CARBONATE) 500 MG TABLET PO SCH (08:46)
[2017-11-04] MEDS: MAGNESIUM OXIDE 400 MG TABLET PO SCH (08:46)
[2017-11-04] MEDS: tiZANidine 4 MG TABLET PO SCH ×3 (08:47→22:39)
[2017-11-04] MEDS: GABAPENTIN 100 MG CAPSULE PO SCH ×3 (08:47→22:39)
[2017-11-04] MEDS: ASCORBIC ACID 500 MG TABLET PO SCH (08:47)
[2017-11-04] MEDS: PANTOPRAZOLE 40 MG TABLET PO SCH ×2 (08:47→22:38)
[2017-11-04] MEDS: ISOSORBIDE MONONITRATE 30 MG TABLET PO SCH (08:48)
[2017-11-04] MEDS ORDERED: ERGOCALCIFEROL 50,000 UNIT CAPSULE PO SCH (13:00)
[2017-11-04] MEDS: ATORVASTATIN 40 MG TABLET PO SCH (22:39)
[2017-11-05 03:49] LABS: Basophils % 0.5 % (0.0-0.8); Eosinophils # 0.2 10*3/uL (0.0-0.87); Eosinophils % 2.9 % (0.00-10.9); Hematocrit 25.1 VOL% (35.7-47.0); Hemoglobin 8.3 GM/DL (12.0-16.0); Immature Granulocytes % 0.3 %; Immature Granulocytes Absolute 0.02 #; Lymphocytes # 0.8 10*3/uL (1.4-4.0); Lymphocytes % 13.8 % (21.3-54.2); Mean Corpuscular HGB Conc 33.1 GM/DL (32-36); Mean Corpuscular Hemoglobin 31 PG (27-34); Mean Corpuscular Volume 92.3 FL (87-102); Mean Platelet Volume 10.5 FL (9.6-12.0); Monocytes # 0.8 10*3/uL (0.11-0.8); Monocytes % 13.5 % (1.7-12.7); Platelet Count 128 T/CUMM (130-400); Red Blood Count 2.72 MC/CUMM (3.8-5.5); Red Cell Distribution Width 15.9 % (9.3-17.3); White Blood Count 5.8 T/CUMM (4-12)
[2017-11-05] MEDS: BACITRACIN OINT 0.9 GM PACK TOP SCH ×3 (05:00→09:14)
[2017-11-05 05:17] LABS: Potassium 3.9 MMOL/L (3.5-5.1)
[2017-11-05] MEDS: LEVOTHYROXINE 75 MCG TABLET PO SCH (05:30)
[2017-11-05] MEDS: INSULIN REGULAR 100 UNIT/ML SUBCUT SCH ×4 (07:50→22:19)
[2017-11-05] MEDS: CALCIUM (CARBONATE) 500 MG TABLET PO SCH (08:46)
[2017-11-05] MEDS: INSULIN GLARGINE 100 UNIT/ML SUBCUT SCH ×2 (08:46→22:12)
[2017-11-05] MEDS: MAGNESIUM OXIDE 400 MG TABLET PO SCH (08:46)
[2017-11-05] MEDS: PANTOPRAZOLE 40 MG TABLET PO SCH ×2 (08:46→22:09)
[2017-11-05] MEDS: FERROUS SULFATE 325 MG TABLET PO SCH (08:46)
[2017-11-05] MEDS: ASCORBIC ACID 500 MG TABLET PO SCH (08:46)
[2017-11-05] MEDS: FEBUXOSTAT 80 MG TABLET PO SCH (08:47)
[2017-11-05] MEDS: ISOSORBIDE MONONITRATE 30 MG TABLET PO SCH (08:47)
[2017-11-05] MEDS: GABAPENTIN 100 MG CAPSULE PO SCH ×3 (08:47→22:10)
[2017-11-05] MEDS: CHOLECALCIFEROL 5,000 UNIT TABLET PO SCH (08:47)
[2017-11-05] MEDS: LIDOCAINE 5% PATCH TRANSDERM SCH ×2 (08:48→09:14)
[2017-11-05] MEDS: tiZANidine 4 MG TABLET PO SCH ×3 (08:48→22:10)
[2017-11-05] MEDS: FLUTICASONE/SALMETEROL 500-50 DISKUS 14 DOSE INH SCH ×2 (09:09→22:21)
[2017-11-05] MEDS ORDERED: SODIUM CHLORIDE 0.9% 1,000 ML IV PRN (12:42)
[2017-11-05] MEDS: METOPROLOL TARTRATE 25 MG TABLET PO SCH (22:09)
[2017-11-05] MEDS: ATORVASTATIN 40 MG TABLET PO SCH (22:09)
[2017-11-06] MEDS: traMADol 50 MG TABLET PO PRN (04:40)
[2017-11-06 06:02] LABS: Basophils % 0.3 % (0.0-0.8); Eosinophils # 0.2 10*3/uL (0.0-0.87); Eosinophils % 3.8 % (0.00-10.9); Hematocrit 25.6 VOL% (35.7-47.0); Hemoglobin 8.6 GM/DL (12.0-16.0); Immature Granulocytes % 0.5 %; Immature Granulocytes Absolute 0.03 #; Lymphocytes # 0.9 10*3/uL (1.4-4.0); Lymphocytes % 13.4 % (21.3-54.2); Mean Corpuscular HGB Conc 33.6 GM/DL (32-36); Mean Corpuscular Hemoglobin 31 PG (27-34); Mean Corpuscular Volume 92.1 FL (87-102); Mean Platelet Volume 11.3 FL (9.6-12.0); Monocytes # 0.8 10*3/uL (0.11-0.8); Monocytes % 12.3 % (1.7-12.7); Neutrophils # 4.4 10*3/uL (1.4-7.4); Neutrophils % 69.7 % (38.7-73.9); Platelet Count 141 T/CUMM (130-400); Red Blood Count 2.78 MC/CUMM (3.8-5.5); Red Cell Distribution Width 15.7 % (9.3-17.3); White Blood Count 6.3 T/CUMM (4-12)
[2017-11-06 06:26] LABS: Calcium 8.2 MG/DL (8.5-10.1); Osmolality,Calculated 290.2 MOS/KG (273-304); Potassium 4.1 MMOL/L (3.5-5.1)
[2017-11-06] MEDS: LEVOTHYROXINE 75 MCG TABLET PO SCH (07:48)
[2017-11-06] MEDS: INSULIN REGULAR 100 UNIT/ML SUBCUT SCH ×4 (08:32→21:46)
[2017-11-06] MEDS: FEBUXOSTAT 80 MG TABLET PO SCH (08:40)
[2017-11-06] MEDS: PANTOPRAZOLE 40 MG TABLET PO SCH ×2 (08:40→21:45)
[2017-11-06] MEDS: CALCIUM (CARBONATE) 500 MG TABLET PO SCH (08:42)
[2017-11-06] MEDS: ASCORBIC ACID 500 MG TABLET PO SCH (08:42)
[2017-11-06] MEDS: tiZANidine 4 MG TABLET PO SCH ×3 (08:42→21:43)
[2017-11-06] MEDS: METOPROLOL TARTRATE 25 MG TABLET PO SCH ×2 (08:43→14:30)
[2017-11-06] MEDS: BACITRACIN OINT 0.9 GM PACK TOP SCH (08:43)
[2017-11-06] MEDS: FERROUS SULFATE 325 MG TABLET PO SCH (08:43)
[2017-11-06] MEDS: MAGNESIUM OXIDE 400 MG TABLET PO SCH (08:43)
[2017-11-06] MEDS: CHOLECALCIFEROL 5,000 UNIT TABLET PO SCH (08:43)
[2017-11-06] MEDS: ISOSORBIDE MONONITRATE 30 MG TABLET PO SCH (08:44)
[2017-11-06] MEDS: LIDOCAINE 5% PATCH TRANSDERM SCH (08:44)
[2017-11-06] MEDS: FLUTICASONE/SALMETEROL 500-50 DISKUS 14 DOSE INH SCH ×2 (08:46→21:52)
[2017-11-06] MEDS: INSULIN GLARGINE 100 UNIT/ML SUBCUT SCH ×2 (09:42→21:49)
[2017-11-06] MEDS: GABAPENTIN 100 MG CAPSULE PO SCH ×3 (09:42→21:44)
[2017-11-06] MEDS: DILTIAZEM CD 120 MG CAPSULE PO SCH (09:45)
[2017-11-06 13:53] LABS: Hematocrit 29.5 VOL% (35.7-47.0); Hemoglobin 9.4 GM/DL (12.0-16.0)
[2017-11-06] MEDS: ATORVASTATIN 40 MG TABLET PO SCH (21:45)
[2017-11-07] MEDS: METOPROLOL TARTRATE 25 MG TABLET PO SCH ×4 (02:48→22:01)
[2017-11-07] MEDS ORDERED: ceFAZolin 2,000 MG in PREMIX 1 EACH IV ONE (06:00)
[2017-11-07 06:28] LABS: Basophils % 0.6 % (0.0-0.8); Eosinophils # 0.3 10*3/uL (0.0-0.87); Hematocrit 27.2 VOL% (35.7-47.0); Hemoglobin 8.8 GM/DL (12.0-16.0); Immature Granulocytes % 0.6 %; Immature Granulocytes Absolute 0.04 #; Lymphocytes # 0.8 10*3/uL (1.4-4.0); Lymphocytes % 13.4 % (21.3-54.2); Mean Corpuscular HGB Conc 32.4 GM/DL (32-36); Mean Corpuscular Hemoglobin 30 PG (27-34); Mean Corpuscular Volume 93.2 FL (87-102); Mean Platelet Volume 11.1 FL (9.6-12.0); Monocytes # 0.7 10*3/uL (0.11-0.8); Monocytes % 11.3 % (1.7-12.7); Neutrophils # 4.3 10*3/uL (1.4-7.4); Neutrophils % 70.1 % (38.7-73.9); Platelet Count 147 T/CUMM (130-400); Red Blood Count 2.92 MC/CUMM (3.8-5.5); Red Cell Distribution Width 16.4 % (9.3-17.3); White Blood Count 6.2 T/CUMM (4-12)
[2017-11-07 07:06] LABS: Calcium 8.1 MG/DL (8.5-10.1); Osmolality,Calculated 290.7 MOS/KG (273-304); Potassium 4.7 MMOL/L (3.5-5.1)
[2017-11-07] MEDS: HYDROmorphone 2 MG/1 ML VIAL IV PRN (08:53)
[2017-11-07] MEDS: tiZANidine 4 MG TABLET PO SCH ×3 (08:54→21:59)
[2017-11-07] MEDS: LIDOCAINE 5% PATCH TRANSDERM SCH (08:54)
[2017-11-07] MEDS: PANTOPRAZOLE 40 MG TABLET PO SCH ×2 (08:54→22:01)
[2017-11-07] MEDS: INSULIN GLARGINE 100 UNIT/ML SUBCUT SCH ×2 (08:55→22:03)
[2017-11-07] MEDS: GABAPENTIN 100 MG CAPSULE PO SCH ×3 (08:55→21:58)
[2017-11-07] MEDS: LEVOTHYROXINE 75 MCG TABLET PO SCH (08:55)
[2017-11-07] MEDS: INSULIN REGULAR 100 UNIT/ML SUBCUT SCH ×4 (08:55→22:03)
[2017-11-07] MEDS: MAGNESIUM OXIDE 400 MG TABLET PO SCH (08:57)
[2017-11-07] MEDS ORDERED: DEXAMETHASONE 4 MG/1 ML VIAL ONE (10:03)
[2017-11-07] MEDS ORDERED: DEXAMETHASONE 10 MG/1 ML VIAL ONE (10:03)
[2017-11-07] MEDS ORDERED: TISSUE ADHESIVE 1 EACH APPLICATOR TOP ONE (11:10)
[2017-11-07] MEDS ORDERED: PROPOFOL 200 MG/20 ML VIAL IV ONE (11:33)
[2017-11-07] MEDS: FERROUS SULFATE 325 MG TABLET PO SCH (12:47)
[2017-11-07] MEDS: CALCIUM (CARBONATE) 500 MG TABLET PO SCH (12:47)
[2017-11-07] MEDS: ASCORBIC ACID 500 MG TABLET PO SCH (12:47)
[2017-11-07] MEDS: FEBUXOSTAT 80 MG TABLET PO SCH (12:47)
[2017-11-07] MEDS: CHOLECALCIFEROL 5,000 UNIT TABLET PO SCH (12:48)
[2017-11-07] MEDS: FLUTICASONE/SALMETEROL 500-50 DISKUS 14 DOSE INH SCH ×2 (12:48→22:05)
[2017-11-07] MEDS: DILTIAZEM CD 120 MG CAPSULE PO SCH (12:48)
[2017-11-07] MEDS: BACITRACIN OINT 0.9 GM PACK TOP SCH (12:48)
[2017-11-07] MEDS: ISOSORBIDE MONONITRATE 30 MG TABLET PO SCH (12:49)
[2017-11-07] MEDS: ceFAZolin 1,000 MG in SYRINGE 1 EACH IV SCH (18:04)
[2017-11-07] MEDS: traMADol 50 MG TABLET PO PRN (22:01)
[2017-11-07] MEDS: ATORVASTATIN 40 MG TABLET PO SCH (22:01)
[2017-11-08] MEDS: ceFAZolin 1,000 MG in SYRINGE 1 EACH IV SCH ×2 (03:08→10:39)
[2017-11-08] MEDS: LIDOCAINE 5% PATCH TRANSDERM SCH ×2 (04:56→08:43)
[2017-11-08 05:27] LABS: Basophils # 0.1 10*3/uL (0.0-0.2); Basophils % 0.5 % (0.0-0.8); Eosinophils # 0.3 10*3/uL (0.0-0.87); Eosinophils % 3.1 % (0.00-10.9); Hemoglobin 9.1 GM/DL (12.0-16.0); Immature Granulocytes % 0.5 %; Immature Granulocytes Absolute 0.05 #; Lymphocytes # 0.9 10*3/uL (1.4-4.0); Lymphocytes % 9.8 % (21.3-54.2); Mean Corpuscular HGB Conc 32.5 GM/DL (32-36); Mean Corpuscular Hemoglobin 30 PG (27-34); Mean Corpuscular Volume 92.4 FL (87-102); Mean Platelet Volume 10.9 FL (9.6-12.0); Monocytes # 0.9 10*3/uL (0.11-0.8); Monocytes % 9.9 % (1.7-12.7); Neutrophils # 7.1 10*3/uL (1.4-7.4); Neutrophils % 76.2 % (38.7-73.9); Platelet Count 173 T/CUMM (130-400); Red Blood Count 3.03 MC/CUMM (3.8-5.5); Red Cell Distribution Width 16.4 % (9.3-17.3); White Blood Count 9.3 T/CUMM (4-12)
[2017-11-08 06:00] LABS: Calcium 8.3 MG/DL (8.5-10.1); Osmolality,Calculated 295.4 MOS/KG (273-304); Potassium 5.2 MMOL/L (3.5-5.1)
[2017-11-08] MEDS: LEVOTHYROXINE 75 MCG TABLET PO SCH (06:11)
[2017-11-08] MEDS: FERROUS SULFATE 325 MG TABLET PO SCH (08:39)
[2017-11-08] MEDS: ISOSORBIDE MONONITRATE 30 MG TABLET PO SCH (08:39)
[2017-11-08] MEDS: METOPROLOL TARTRATE 25 MG TABLET PO SCH ×3 (08:39→21:29)
[2017-11-08] MEDS: PANTOPRAZOLE 40 MG TABLET PO SCH ×2 (08:40→21:28)
[2017-11-08] MEDS: FEBUXOSTAT 80 MG TABLET PO SCH (08:40)
[2017-11-08] MEDS: DILTIAZEM CD 120 MG CAPSULE PO SCH (08:40)
[2017-11-08] MEDS: CHOLECALCIFEROL 5,000 UNIT TABLET PO SCH (08:40)
[2017-11-08] MEDS: CALCIUM (CARBONATE) 500 MG TABLET PO SCH (08:40)
[2017-11-08] MEDS: MAGNESIUM OXIDE 400 MG TABLET PO SCH (08:41)
[2017-11-08] MEDS: GABAPENTIN 100 MG CAPSULE PO SCH ×3 (08:41→21:28)
[2017-11-08] MEDS: ASCORBIC ACID 500 MG TABLET PO SCH (08:41)
[2017-11-08] MEDS: FLUTICASONE/SALMETEROL 500-50 DISKUS 14 DOSE INH SCH ×2 (08:43→21:29)
[2017-11-08] MEDS: BACITRACIN OINT 0.9 GM PACK TOP SCH (08:43)
[2017-11-08] MEDS: INSULIN GLARGINE 100 UNIT/ML SUBCUT SCH ×2 (08:43→21:28)
[2017-11-08] MEDS: INSULIN REGULAR 100 UNIT/ML SUBCUT SCH ×4 (09:03→21:28)
[2017-11-08] MEDS: traMADol 50 MG TABLET PO PRN ×2 (10:44→16:04)
[2017-11-08] MEDS: METAXALONE 800 MG TABLET PO PRN ×2 (11:07→16:04)
[2017-11-08] MEDS: ATORVASTATIN 40 MG TABLET PO SCH (21:28)
[2017-11-09] MEDS: LEVOTHYROXINE 75 MCG TABLET PO SCH (06:02)
[2017-11-09 06:12] LABS: Basophils % 0.3 % (0.0-0.8); Eosinophils # 0.3 10*3/uL (0.0-0.87); Eosinophils % 3.8 % (0.00-10.9); Hematocrit 28.1 VOL% (35.7-47.0); Immature Granulocytes % 0.8 %; Immature Granulocytes Absolute 0.07 #; Lymphocytes # 0.9 10*3/uL (1.4-4.0); Lymphocytes % 10.7 % (21.3-54.2); Mean Corpuscular Hemoglobin 30 PG (27-34); Mean Corpuscular Volume 92.4 FL (87-102); Mean Platelet Volume 10.6 FL (9.6-12.0); Monocytes % 11.4 % (1.7-12.7); Neutrophils # 6.4 10*3/uL (1.4-7.4); Platelet Count 190 T/CUMM (130-400); Red Blood Count 3.04 MC/CUMM (3.8-5.5); Red Cell Distribution Width 15.9 % (9.3-17.3); White Blood Count 8.8 T/CUMM (4-12)
[2017-11-09 06:52] LABS: Calcium 8.5 MG/DL (8.5-10.1); Osmolality,Calculated 290.8 MOS/KG (273-304); Potassium 5.4 MMOL/L (3.5-5.1)
[2017-11-09] MEDS: INSULIN REGULAR 100 UNIT/ML SUBCUT SCH ×4 (08:49→21:33)
[2017-11-09] MEDS: MAGNESIUM OXIDE 400 MG TABLET PO SCH (08:49)
[2017-11-09] MEDS: CALCIUM (CARBONATE) 500 MG TABLET PO SCH (08:50)
[2017-11-09] MEDS: FERROUS SULFATE 325 MG TABLET PO SCH (08:50)
[2017-11-09] MEDS: DILTIAZEM CD 120 MG CAPSULE PO SCH (08:50)
[2017-11-09] MEDS: FEBUXOSTAT 80 MG TABLET PO SCH (08:51)
[2017-11-09] MEDS: GABAPENTIN 100 MG CAPSULE PO SCH (08:51)
[2017-11-09] MEDS: ASCORBIC ACID 500 MG TABLET PO SCH (08:51)
[2017-11-09] MEDS: ISOSORBIDE MONONITRATE 30 MG TABLET PO SCH (08:51)
[2017-11-09] MEDS: METOPROLOL TARTRATE 25 MG TABLET PO SCH ×3 (08:52→21:31)
[2017-11-09] MEDS: BACITRACIN OINT 0.9 GM PACK TOP SCH (08:52)
[2017-11-09] MEDS: LIDOCAINE 5% PATCH TRANSDERM SCH (08:52)
[2017-11-09] MEDS: CHOLECALCIFEROL 5,000 UNIT TABLET PO SCH (08:52)
[2017-11-09] MEDS: PANTOPRAZOLE 40 MG TABLET PO SCH ×2 (08:52→21:31)
[2017-11-09] MEDS: INSULIN GLARGINE 100 UNIT/ML SUBCUT SCH ×2 (08:53→21:31)
[2017-11-09] MEDS: FLUTICASONE/SALMETEROL 500-50 DISKUS 14 DOSE INH SCH ×2 (08:53→21:35)
[2017-11-09] MEDS ORDERED: SODIUM CHLORIDE 0.9% 1,000 ML IV SCH (11:00)
[2017-11-09] MEDS: ATORVASTATIN 40 MG TABLET PO SCH (21:31)
[2017-11-10] MEDS: traMADol 50 MG TABLET PO PRN (00:02)
[2017-11-10 06:02] LABS: Basophils % 0.5 % (0.0-0.8); Eosinophils # 0.3 10*3/uL (0.0-0.87); Eosinophils % 3.5 % (0.00-10.9); Hematocrit 26.4 VOL% (35.7-47.0); Hemoglobin 8.4 GM/DL (12.0-16.0); Immature Granulocytes % 0.5 %; Immature Granulocytes Absolute 0.04 #; Lymphocytes # 0.8 10*3/uL (1.4-4.0); Lymphocytes % 10.9 % (21.3-54.2); Mean Corpuscular HGB Conc 31.8 GM/DL (32-36); Mean Corpuscular Hemoglobin 30 PG (27-34); Mean Corpuscular Volume 94.3 FL (87-102); Mean Platelet Volume 10.9 FL (9.6-12.0); Monocytes # 0.9 10*3/uL (0.11-0.8); Monocytes % 11.5 % (1.7-12.7); Neutrophils # 5.6 10*3/uL (1.4-7.4); Neutrophils % 73.1 % (38.7-73.9); Platelet Count 183 T/CUMM (130-400); Red Cell Distribution Width 15.8 % (9.3-17.3); White Blood Count 7.7 T/CUMM (4-12)
[2017-11-10 06:28] LABS: Osmolality,Calculated 298.4 MOS/KG (273-304); Potassium 5.5 MMOL/L (3.5-5.1)
[2017-11-10 06:33] LABS: Albumin 2.6 G/DL (3.4-5.0); Bilirubin,Direct 0.22 MG/DL (0.0-0.20); Bilirubin,Indirect 1.1 MG/DL (0.0-1.0); Bilirubin,Total 1.3 MG/DL (0.2-1.0); Total Protein 6.1 G/DL (6.4-8.3)
[2017-11-10] MEDS: LEVOTHYROXINE 75 MCG TABLET PO SCH (07:32)
[2017-11-10] MEDS: INSULIN REGULAR 100 UNIT/ML SUBCUT SCH ×2 (09:36→12:34)
[2017-11-10] MEDS: FEBUXOSTAT 80 MG TABLET PO SCH (09:37)
[2017-11-10] MEDS: CALCIUM (CARBONATE) 500 MG TABLET PO SCH (09:37)
[2017-11-10] MEDS: ASCORBIC ACID 500 MG TABLET PO SCH (09:37)
[2017-11-10] MEDS: BACITRACIN OINT 0.9 GM PACK TOP SCH (09:38)
[2017-11-10] MEDS: MAGNESIUM OXIDE 400 MG TABLET PO SCH (09:38)
[2017-11-10] MEDS: METOPROLOL TARTRATE 25 MG TABLET PO SCH ×2 (09:38→09:47)
[2017-11-10] MEDS: FERROUS SULFATE 325 MG TABLET PO SCH (09:38)
[2017-11-10] MEDS: ISOSORBIDE MONONITRATE 30 MG TABLET PO SCH (09:38)
[2017-11-10] MEDS: CHOLECALCIFEROL 5,000 UNIT TABLET PO SCH (09:39)
[2017-11-10] MEDS: DILTIAZEM CD 120 MG CAPSULE PO SCH (09:40)
[2017-11-10] MEDS: INSULIN GLARGINE 100 UNIT/ML SUBCUT SCH (09:45)
[2017-11-10] MEDS: LIDOCAINE 5% PATCH TRANSDERM SCH (09:51)
[2017-11-10] MEDS: FLUTICASONE/SALMETEROL 500-50 DISKUS 14 DOSE INH SCH (09:51)
[2017-11-10 11:57] VITALS: BP 122/66
[2017-11-10] MEDS: PANTOPRAZOLE 40 MG TABLET PO SCH (12:34)
== END 2017-11-10 12:33 | disposition swing bed (61) | DRG 516 ==
LOC: EDUNIT# → EDBD → N.ED 12:18 → N.EDINP 14:17 → N.2E 15:05 → N.CC 18:41 → N.2E 11-05 14:43
PROVIDERS: ADMIT Internal Medicine; ATTEND Internal Medicine

== ENCOUNTER 2018-03-09 11:19 | Inpatient (IN) ==
[2018-03-09] MEDS ORDERED: ACETAMINOPHEN 325 MG TABLET PO PRN (11:37)
[2018-03-09] MEDS ORDERED: SODIUM CHLORIDE 0.9% 1,000 ML IV PRN (11:41)
[2018-03-09] MEDS ORDERED: FUROSEMIDE 40 MG/4 ML VIAL IV PRN (11:41)
[2018-03-09] MEDS ORDERED: GLUCAGON 1 MG VIAL IM PRN ×2 (14:30→15:25)
[2018-03-09] MEDS ORDERED: DEXTROSE 50% 25 GM/50 ML VIAL IV PRN ×2 (14:30→15:25)
[2018-03-09] MEDS ORDERED: NITROGLYCERIN SL 0.4 MG TABLET SL PRN (14:44)
[2018-03-09] MEDS ORDERED: ALBUTEROL/IPRATROPIUM 3 ML NEB RESP TX PRN (14:59)
[2018-03-09] MEDS ORDERED: ALBUTEROL 2.5 MG/3 ML NEB RESP TX PRN (14:59)
[2018-03-09] MEDS ORDERED: FEXOFENADINE 180 MG TABLET PO PRN (14:59)
[2018-03-09 15:18] LABS: Albumin 3.1 G/DL (3.4-5.0); Bilirubin,Direct 0.22 MG/DL (0.0-0.20); Bilirubin,Indirect 0.3 MG/DL (0.0-1.0); Bilirubin,Total 0.5 MG/DL (0.2-1.0); Total Protein 6.9 G/DL (6.4-8.3)
[2018-03-09] MEDS: INSULIN LISPRO 100 UNIT/ML SUBCUT SCH ×2 (18:34→21:29)
[2018-03-09] MEDS: METOPROLOL TARTRATE 50 MG TABLET PO SCH ×2 (18:35→20:59)
[2018-03-09] MEDS: ATORVASTATIN 40 MG TABLET PO SCH (20:58)
[2018-03-09] MEDS: FERROUS SULFATE 325 MG TABLET PO SCH (20:58)
[2018-03-09] MEDS: GABAPENTIN 100 MG CAPSULE PO SCH (20:58)
[2018-03-09] MEDS: DOCUSATE SODIUM 100 MG CAPSULE PO SCH (20:58)
[2018-03-09] MEDS: PANTOPRAZOLE 40 MG TABLET PO SCH (20:59)
[2018-03-09] MEDS: INSULIN GLARGINE 100 UNIT/ML SUBCUT SCH (21:26)
[2018-03-09] MEDS: traMADol 50 MG TABLET PO PRN (21:44)
[2018-03-09] MEDS: FLUTICASONE/SALMETEROL 500-50 DISKUS 14 DOSE INH SCH (21:50)
[2018-03-09] MEDS: FUROSEMIDE 40 MG TABLET PO SCH (22:02)
[2018-03-10] MEDS: LEVOTHYROXINE 75 MCG TABLET PO SCH (06:12)
[2018-03-10 06:48] LABS: Basophils % 0.4 % (0.0-0.8); Eosinophils # 0.2 10*3/uL (0.0-0.87); Eosinophils % 4.4 % (0.00-10.9); Hematocrit 21.4 VOL% (35.7-47.0); Hemoglobin 6.9 GM/DL (12.0-16.0); Immature Granulocytes % 0.2 %; Immature Granulocytes Absolute 0.01 #; Mean Corpuscular HGB Conc 32.2 GM/DL (32-36); Mean Corpuscular Hemoglobin 30 PG (27-34); Mean Corpuscular Volume 91.5 FL (87-102); Mean Platelet Volume 10.6 FL (9.6-12.0); Monocytes # 0.5 10*3/uL (0.11-0.8); Monocytes % 11.5 % (1.7-12.7); Neutrophils # 2.8 10*3/uL (1.4-7.4); Neutrophils % 62.5 % (38.7-73.9); Platelet Count 161 T/CUMM (130-400); Red Blood Count 2.34 MC/CUMM (3.8-5.5); Red Cell Distribution Width 13.9 % (9.3-17.3); White Blood Count 4.5 T/CUMM (4-12)
[2018-03-10 07:30] LABS: Calcium 8.1 MG/DL (8.5-10.1); Osmolality,Calculated 285.8 MOS/KG (273-304); Potassium 3.4 MMOL/L (3.5-5.1)
[2018-03-10 07:33] LABS: Risk Ratio 2.29; VLDL CHOLESTEROL 8.2 MG/DL
[2018-03-10] MEDS: INSULIN LISPRO 100 UNIT/ML SUBCUT SCH ×4 (08:17→21:30)
[2018-03-10] MEDS ORDERED: FUROSEMIDE 40 MG/4 ML VIAL IV ONE (08:36)
[2018-03-10] MEDS: INSULIN GLARGINE 100 UNIT/ML SUBCUT SCH ×2 (09:29→21:30)
[2018-03-10] MEDS ORDERED: diphenhydrAMINE CAP 50 MG CAPSULE PO ONE ×2 (12:23→16:57)
[2018-03-10] MEDS ORDERED: diphenhydrAMINE CAP 50 MG CAPSULE ONE (12:27)
[2018-03-10] MEDS: ASCORBIC ACID 500 MG TABLET PO SCH (12:35)
[2018-03-10] MEDS: CHOLECALCIFEROL 5,000 UNIT TABLET PO SCH (12:35)
[2018-03-10] MEDS: FLUTICASONE/SALMETEROL 500-50 DISKUS 14 DOSE INH SCH ×2 (12:35→21:40)
[2018-03-10] MEDS: GABAPENTIN 100 MG CAPSULE PO SCH ×2 (12:36→21:29)
[2018-03-10] MEDS: MAGNESIUM OXIDE 400 MG TABLET PO SCH (12:36)
[2018-03-10] MEDS: DILTIAZEM CD 120 MG CAPSULE PO SCH ×2 (12:36→13:51)
[2018-03-10] MEDS: MULTIVITAMIN (OCUVITE) TABLET PO SCH (12:36)
[2018-03-10] MEDS: DOCUSATE SODIUM 100 MG CAPSULE PO SCH ×2 (12:36→21:30)
[2018-03-10] MEDS: CALCIUM (CARBONATE) 500 MG TABLET PO SCH (12:37)
[2018-03-10] MEDS: PANTOPRAZOLE 40 MG TABLET PO SCH ×3 (12:37→21:30)
[2018-03-10] MEDS: FERROUS SULFATE 325 MG TABLET PO SCH ×2 (12:38→21:29)
[2018-03-10] MEDS: ISOSORBIDE MONONITRATE 30 MG TABLET PO SCH (12:56)
[2018-03-10] MEDS: SPIRONOLACTONE 25 MG TABLET PO SCH (12:56)
[2018-03-10] MEDS: FUROSEMIDE 80 MG TABLET PO SCH (12:56)
[2018-03-10] MEDS: METOPROLOL TARTRATE 50 MG TABLET PO SCH ×3 (12:57→21:29)
[2018-03-10] MEDS: traMADol 50 MG TABLET PO PRN (12:57)
[2018-03-10] MEDS ORDERED: methylPREDNISolone SOD SUC 125 MG/2 ML VIAL IV ONE (13:27)
[2018-03-10] MEDS: POTASSIUM CHLORIDE 8 MEQ CAPSULE PO SCH (13:49)
[2018-03-10] MEDS ORDERED: SODIUM CHLORIDE 0.9% 1,000 ML IV PRN (16:35)
[2018-03-10] MEDS ORDERED: HYDROCORTISONE 100 MG VIAL IV ONE (16:57)
[2018-03-10 17:08] LABS: Bilirubin,Total 2.3 MG/DL (0.2-1.0)
[2018-03-10] MEDS: ATORVASTATIN 40 MG TABLET PO SCH (21:29)
[2018-03-10] MEDS: FUROSEMIDE 40 MG TABLET PO SCH (21:29)
[2018-03-11] MEDS: traMADol 50 MG TABLET PO PRN ×2 (04:40→09:31)
[2018-03-11 06:01] LABS: Basophils % 0.2 % (0.0-0.8); Eosinophils % 0.2 % (0.00-10.9); Hematocrit 27.7 VOL% (35.7-47.0); Immature Granulocytes % 0.6 %; Immature Granulocytes Absolute 0.04 #; Lymphocytes # 0.5 10*3/uL (1.4-4.0); Lymphocytes % 7.2 % (21.3-54.2); Mean Corpuscular HGB Conc 32.5 GM/DL (32-36); Mean Corpuscular Hemoglobin 30 PG (27-34); Monocytes # 0.3 10*3/uL (0.11-0.8); Neutrophils # 5.7 10*3/uL (1.4-7.4); Neutrophils % 87.8 % (38.7-73.9); Platelet Count 164 T/CUMM (130-400); Red Blood Count 3.01 MC/CUMM (3.8-5.5); Red Cell Distribution Width 14.6 % (9.3-17.3); White Blood Count 6.5 T/CUMM (4-12)
[2018-03-11] MEDS: LEVOTHYROXINE 75 MCG TABLET PO SCH (06:09)
[2018-03-11 06:37] LABS: Calcium 8.5 MG/DL (8.5-10.1); Osmolality,Calculated 296.2 MOS/KG (273-304); Potassium 4.1 MMOL/L (3.5-5.1)
[2018-03-11] MEDS ORDERED: DIPHENOXYLATE/ATROPINE 2.5-0.025 MG TABLET PO PRN (09:13)
[2018-03-11] MEDS: FERROUS SULFATE 325 MG TABLET PO SCH ×2 (09:34→21:19)
[2018-03-11] MEDS: POTASSIUM CHLORIDE 8 MEQ CAPSULE PO SCH (09:34)
[2018-03-11] MEDS: CHOLECALCIFEROL 5,000 UNIT TABLET PO SCH (09:35)
[2018-03-11] MEDS: ISOSORBIDE MONONITRATE 30 MG TABLET PO SCH (09:35)
[2018-03-11] MEDS: MULTIVITAMIN (OCUVITE) TABLET PO SCH (09:35)
[2018-03-11] MEDS: CALCIUM (CARBONATE) 500 MG TABLET PO SCH (09:35)
[2018-03-11] MEDS: MAGNESIUM OXIDE 400 MG TABLET PO SCH (09:36)
[2018-03-11] MEDS: ASCORBIC ACID 500 MG TABLET PO SCH (09:36)
[2018-03-11] MEDS: DILTIAZEM CD 120 MG CAPSULE PO SCH (09:37)
[2018-03-11] MEDS: PANTOPRAZOLE 40 MG TABLET PO SCH ×3 (09:37→21:19)
[2018-03-11] MEDS: METOPROLOL TARTRATE 50 MG TABLET PO SCH ×3 (09:37→21:19)
[2018-03-11] MEDS: GABAPENTIN 100 MG CAPSULE PO SCH ×2 (09:37→21:19)
[2018-03-11] MEDS: FLUTICASONE/SALMETEROL 500-50 DISKUS 14 DOSE INH SCH ×2 (09:38→21:20)
[2018-03-11] MEDS: INSULIN GLARGINE 100 UNIT/ML SUBCUT SCH ×2 (09:38→21:19)
[2018-03-11] MEDS: DOCUSATE SODIUM 100 MG CAPSULE PO SCH ×2 (09:39→21:20)
[2018-03-11] MEDS: INSULIN LISPRO 100 UNIT/ML SUBCUT SCH ×4 (09:40→21:20)
[2018-03-11] MEDS: FUROSEMIDE 80 MG TABLET PO SCH (09:44)
[2018-03-11] MEDS: SPIRONOLACTONE 25 MG TABLET PO SCH (09:45)
[2018-03-11] MEDS: DICYCLOMINE 10 MG CAPSULE PO PRN ×2 (14:07→21:20)
[2018-03-11 18:13] LABS: Apearance,Urine CLEAR (Clear); Bilirubin,Urine Negative (Negative); Blood, Urine Negative (Negative); Glucose,Urine (UA) Negative (Negative); Hyaline Casts,Urine 3 /LPF (0-3); Ketones,Urine Negative (Negative); Nitrite,Urine Negative (Negative); Protein,Urine Negative; RBC,Urine 1 /HPF (0-4); Squamous Epithelial Cell,Urine Occasional /HPF (0-10); Urine Color Amber (Yellow); Urine Urobilinogen < 2.0 EU/DL (0.2-1.0); WBC,Urine 1 /HPF (0-6)
[2018-03-11] MEDS: FUROSEMIDE 40 MG TABLET PO SCH (21:19)
[2018-03-11] MEDS: ATORVASTATIN 40 MG TABLET PO SCH (21:20)
[2018-03-12 03:52] LABS: Basophils % 0.1 % (0.0-0.8); Eosinophils % 0.5 % (0.00-10.9); Hematocrit 25.3 VOL% (35.7-47.0); Immature Granulocytes % 0.8 %; Immature Granulocytes Absolute 0.07 #; Lymphocytes # 0.5 10*3/uL (1.4-4.0); Lymphocytes % 6.1 % (21.3-54.2); Mean Corpuscular HGB Conc 31.6 GM/DL (32-36); Mean Corpuscular Hemoglobin 30 PG (27-34); Mean Corpuscular Volume 93.4 FL (87-102); Mean Platelet Volume 11.1 FL (9.6-12.0); Monocytes # 0.6 10*3/uL (0.11-0.8); Neutrophils # 7.6 10*3/uL (1.4-7.4); Neutrophils % 85.5 % (38.7-73.9); Platelet Count 173 T/CUMM (130-400); Red Blood Count 2.71 MC/CUMM (3.8-5.5); Red Cell Distribution Width 14.7 % (9.3-17.3); White Blood Count 8.9 T/CUMM (4-12)
[2018-03-12 04:25] LABS: Bilirubin,Total 0.6 MG/DL (0.2-1.0); Calcium 8.2 MG/DL (8.5-10.1); Osmolality,Calculated 292.4 MOS/KG (273-304); Potassium 3.9 MMOL/L (3.5-5.1); Total Protein 6.6 G/DL (6.4-8.3)
[2018-03-12] MEDS: LEVOTHYROXINE 75 MCG TABLET PO SCH (07:14)
[2018-03-12] MEDS ORDERED: SODIUM CHLORIDE 0.9% 1,000 ML IV PRN (07:14)
[2018-03-12] MEDS ORDERED: HYDROCORTISONE 100 MG VIAL IV ONE (07:15)
[2018-03-12] MEDS: SPIRONOLACTONE 25 MG TABLET PO SCH (09:20)
[2018-03-12] MEDS: DICYCLOMINE 10 MG CAPSULE PO PRN ×2 (09:21→20:58)
[2018-03-12] MEDS: CALCIUM (CARBONATE) 500 MG TABLET PO SCH (09:21)
[2018-03-12] MEDS: METOPROLOL TARTRATE 50 MG TABLET PO SCH ×3 (09:21→20:58)
[2018-03-12] MEDS: ASCORBIC ACID 500 MG TABLET PO SCH (09:21)
[2018-03-12] MEDS: GABAPENTIN 100 MG CAPSULE PO SCH ×2 (09:22→20:58)
[2018-03-12] MEDS: ISOSORBIDE MONONITRATE 30 MG TABLET PO SCH (09:22)
[2018-03-12] MEDS: FERROUS SULFATE 325 MG TABLET PO SCH ×2 (09:22→20:58)
[2018-03-12] MEDS: MAGNESIUM OXIDE 400 MG TABLET PO SCH (09:22)
[2018-03-12] MEDS: DOCUSATE SODIUM 100 MG CAPSULE PO SCH ×2 (09:22→20:59)
[2018-03-12] MEDS: CHOLECALCIFEROL 5,000 UNIT TABLET PO SCH (09:22)
[2018-03-12] MEDS: DILTIAZEM CD 120 MG CAPSULE PO SCH (09:23)
[2018-03-12] MEDS: FUROSEMIDE 80 MG TABLET PO SCH (09:23)
[2018-03-12] MEDS: POTASSIUM CHLORIDE 8 MEQ CAPSULE PO SCH (09:24)
[2018-03-12] MEDS: PANTOPRAZOLE 40 MG TABLET PO SCH ×2 (09:24→20:58)
[2018-03-12] MEDS: MULTIVITAMIN (OCUVITE) TABLET PO SCH (09:24)
[2018-03-12] MEDS: INSULIN LISPRO 100 UNIT/ML SUBCUT SCH ×4 (09:24→21:00)
[2018-03-12] MEDS: INSULIN GLARGINE 100 UNIT/ML SUBCUT SCH ×2 (09:24→21:02)
[2018-03-12] MEDS: FLUTICASONE/SALMETEROL 500-50 DISKUS 14 DOSE INH SCH ×2 (09:25→20:59)
[2018-03-12] MEDS: traMADol 50 MG TABLET PO PRN (20:57)
[2018-03-12] MEDS: ATORVASTATIN 40 MG TABLET PO SCH (20:58)
[2018-03-12] MEDS: FUROSEMIDE 40 MG TABLET PO SCH (20:58)
[2018-03-13 04:55] LABS: Basophils % 0.4 % (0.0-0.8); Eosinophils # 0.5 10*3/uL (0.0-0.87); Eosinophils % 5.4 % (0.00-10.9); Hematocrit 23.5 VOL% (35.7-47.0); Hemoglobin 7.6 GM/DL (12.0-16.0); Immature Granulocytes % 0.6 %; Immature Granulocytes Absolute 0.05 #; Lymphocytes # 1.3 10*3/uL (1.4-4.0); Lymphocytes % 15.7 % (21.3-54.2); Mean Corpuscular HGB Conc 32.3 GM/DL (32-36); Mean Corpuscular Hemoglobin 30 PG (27-34); Mean Corpuscular Volume 91.8 FL (87-102); Mean Platelet Volume 10.8 FL (9.6-12.0); Monocytes # 0.9 10*3/uL (0.11-0.8); Monocytes % 10.5 % (1.7-12.7); Neutrophils # 5.8 10*3/uL (1.4-7.4); Neutrophils % 67.4 % (38.7-73.9); Platelet Count 184 T/CUMM (130-400); Red Blood Count 2.56 MC/CUMM (3.8-5.5); Red Cell Distribution Width 14.6 % (9.3-17.3); White Blood Count 8.6 T/CUMM (4-12)
[2018-03-13] MEDS ORDERED: HYDROCORTISONE 100 MG VIAL IV ONE ×2 (05:00→08:30)
[2018-03-13] MEDS: LEVOTHYROXINE 75 MCG TABLET PO SCH (06:44)
[2018-03-13 07:56] LABS: Calcium 8.2 MG/DL (8.5-10.1); Potassium 4.2 MMOL/L (3.5-5.1)
[2018-03-13] MEDS ORDERED: HYDROCORTISONE 100 MG VIAL IV SCH (08:30)
[2018-03-13] MEDS ORDERED: FUROSEMIDE 40 MG/4 ML VIAL IV ONE (08:59)
[2018-03-13] MEDS ORDERED: FUROSEMIDE 40 MG/4 ML VIAL ONE (09:02)
[2018-03-13] MEDS: INSULIN GLARGINE 100 UNIT/ML SUBCUT SCH ×2 (09:10→20:44)
[2018-03-13] MEDS ORDERED: LIDOCAINE 2% 5 ML VIAL ONE (10:00)
[2018-03-13] MEDS ORDERED: PROPOFOL 200 MG/20 ML VIAL IV ONE (10:00)
[2018-03-13] MEDS ORDERED: ALBUTEROL/IPRATROPIUM 3 ML NEB RESP TX ONE (13:27)
[2018-03-13] MEDS: INSULIN LISPRO 100 UNIT/ML SUBCUT SCH ×4 (14:01→20:45)
[2018-03-13] MEDS: FLUTICASONE/SALMETEROL 500-50 DISKUS 14 DOSE INH SCH ×2 (14:02→20:43)
[2018-03-13] MEDS: METOPROLOL TARTRATE 50 MG TABLET PO SCH ×3 (14:02→21:02)
[2018-03-13] MEDS: FERROUS SULFATE 325 MG TABLET PO SCH ×2 (14:34→20:44)
[2018-03-13] MEDS: DOCUSATE SODIUM 100 MG CAPSULE PO SCH ×2 (14:34→20:43)
[2018-03-13] MEDS: GABAPENTIN 100 MG CAPSULE PO SCH ×2 (14:35→20:56)
[2018-03-13] MEDS: ISOSORBIDE MONONITRATE 30 MG TABLET PO SCH (14:41)
[2018-03-13] MEDS: MULTIVITAMIN (OCUVITE) TABLET PO SCH (14:41)
[2018-03-13] MEDS: POTASSIUM CHLORIDE 8 MEQ CAPSULE PO SCH (14:41)
[2018-03-13] MEDS: CHOLECALCIFEROL 5,000 UNIT TABLET PO SCH (14:41)
[2018-03-13] MEDS: MAGNESIUM OXIDE 400 MG TABLET PO SCH (14:41)
[2018-03-13] MEDS: DILTIAZEM CD 120 MG CAPSULE PO SCH (14:42)
[2018-03-13] MEDS: FUROSEMIDE 80 MG TABLET PO SCH (14:42)
[2018-03-13] MEDS: SPIRONOLACTONE 25 MG TABLET PO SCH (14:43)
[2018-03-13] MEDS: PANTOPRAZOLE 40 MG TABLET PO SCH ×2 (14:43→20:44)
[2018-03-13] MEDS: ASCORBIC ACID 500 MG TABLET PO SCH (14:43)
[2018-03-13] MEDS: CALCIUM (CARBONATE) 500 MG TABLET PO SCH (14:49)
[2018-03-13 19:48] LABS: Hematocrit 26.4 VOL% (35.7-47.0); Hemoglobin 8.4 GM/DL (12.0-16.0)
[2018-03-13] MEDS: ATORVASTATIN 40 MG TABLET PO SCH (20:43)
[2018-03-13] MEDS: FUROSEMIDE 40 MG TABLET PO SCH (20:44)
[2018-03-13] MEDS: traMADol 50 MG TABLET PO PRN (20:56)
[2018-03-13] MEDS: DICYCLOMINE 10 MG CAPSULE PO PRN (22:29)
[2018-03-14 05:19] LABS: Basophils % 0.1 % (0.0-0.8); Eosinophils # 0.1 10*3/uL (0.0-0.87); Eosinophils % 0.8 % (0.00-10.9); Hematocrit 26.1 VOL% (35.7-47.0); Hemoglobin 8.3 GM/DL (12.0-16.0); Immature Granulocytes % 0.7 %; Immature Granulocytes Absolute 0.07 #; Lymphocytes # 1.2 10*3/uL (1.4-4.0); Lymphocytes % 12.4 % (21.3-54.2); Mean Corpuscular HGB Conc 31.8 GM/DL (32-36); Mean Corpuscular Hemoglobin 28 PG (27-34); Mean Corpuscular Volume 88.5 FL (87-102); Mean Platelet Volume 11.2 FL (9.6-12.0); Monocytes # 1.4 10*3/uL (0.11-0.8); Neutrophils # 7.1 10*3/uL (1.4-7.4); Platelet Count 188 T/CUMM (130-400); Red Blood Count 2.95 MC/CUMM (3.8-5.5); Red Cell Distribution Width 17.7 % (9.3-17.3); White Blood Count 9.8 T/CUMM (4-12)
[2018-03-14 05:51] LABS: Potassium 3.9 MMOL/L (3.5-5.1)
[2018-03-14] MEDS: LEVOTHYROXINE 75 MCG TABLET PO SCH (06:03)
[2018-03-14] MEDS: DICYCLOMINE 10 MG CAPSULE PO PRN ×2 (06:05→18:18)
[2018-03-14] MEDS: ISOSORBIDE MONONITRATE 30 MG TABLET PO SCH (08:02)
[2018-03-14] MEDS: MULTIVITAMIN (OCUVITE) TABLET PO SCH (08:02)
[2018-03-14] MEDS: POTASSIUM CHLORIDE 8 MEQ CAPSULE PO SCH (08:02)
[2018-03-14] MEDS: SPIRONOLACTONE 25 MG TABLET PO SCH (08:03)
[2018-03-14] MEDS: CALCIUM (CARBONATE) 500 MG TABLET PO SCH (08:03)
[2018-03-14] MEDS: MAGNESIUM OXIDE 400 MG TABLET PO SCH (08:03)
[2018-03-14] MEDS: PANTOPRAZOLE 40 MG TABLET PO SCH ×2 (08:03→21:10)
[2018-03-14] MEDS: METOPROLOL TARTRATE 50 MG TABLET PO SCH ×3 (08:03→21:10)
[2018-03-14] MEDS: ASCORBIC ACID 500 MG TABLET PO SCH (08:03)
[2018-03-14] MEDS: FERROUS SULFATE 325 MG TABLET PO SCH ×2 (08:03→21:10)
[2018-03-14] MEDS: DILTIAZEM CD 120 MG CAPSULE PO SCH (08:03)
[2018-03-14] MEDS: FUROSEMIDE 80 MG TABLET PO SCH (08:03)
[2018-03-14] MEDS: GABAPENTIN 100 MG CAPSULE PO SCH ×2 (08:03→21:10)
[2018-03-14] MEDS: CHOLECALCIFEROL 5,000 UNIT TABLET PO SCH (08:03)
[2018-03-14] MEDS: INSULIN LISPRO 100 UNIT/ML SUBCUT SCH ×4 (08:04→21:12)
[2018-03-14] MEDS: FLUTICASONE/SALMETEROL 500-50 DISKUS 14 DOSE INH SCH ×2 (08:04→21:12)
[2018-03-14] MEDS: INSULIN GLARGINE 100 UNIT/ML SUBCUT SCH ×2 (08:04→21:11)
[2018-03-14] MEDS ORDERED: IRON SUCROSE 300 MG in SODIUM CHLORIDE 0.9% 100 ML IV ONE (09:00)
[2018-03-14] MEDS ORDERED: SODIUM CHLORIDE 0.9% 1,000 ML IV PRN (09:18)
[2018-03-14] MEDS ORDERED: HYDROCORTISONE 100 MG VIAL IV ONE (09:29)
[2018-03-14] MEDS ORDERED: FUROSEMIDE 40 MG/4 ML VIAL IV ONE (09:30)
[2018-03-14] MEDS: DOCUSATE SODIUM 100 MG CAPSULE PO SCH ×2 (09:59→21:12)
[2018-03-14 11:33] LABS: INR 1.1; PT Patient Result 11.8 SECS
[2018-03-14] MEDS: FUROSEMIDE 40 MG TABLET PO SCH (21:10)
[2018-03-14] MEDS: ATORVASTATIN 40 MG TABLET PO SCH (21:10)
[2018-03-15 05:11] LABS: Basophils % 0.4 % (0.0-0.8); Eosinophils # 0.4 10*3/uL (0.0-0.87); Eosinophils % 4.1 % (0.00-10.9); Hematocrit 24.9 VOL% (35.7-47.0); Hemoglobin 7.9 GM/DL (12.0-16.0); Immature Granulocytes % 2.1 %; Immature Granulocytes Absolute 0.19 #; Lymphocytes # 1.3 10*3/uL (1.4-4.0); Lymphocytes % 14.3 % (21.3-54.2); Mean Corpuscular HGB Conc 31.7 GM/DL (32-36); Mean Corpuscular Hemoglobin 29 PG (27-34); Mean Corpuscular Volume 89.9 FL (87-102); Mean Platelet Volume 11.2 FL (9.6-12.0); Monocytes % 10.7 % (1.7-12.7); NRBC # 0.02 10*3/uL; Neutrophils # 6.2 10*3/uL (1.4-7.4); Neutrophils % 68.4 % (38.7-73.9); Platelet Count 168 T/CUMM (130-400); Red Blood Count 2.77 MC/CUMM (3.8-5.5); Red Cell Distribution Width 18.1 % (9.3-17.3)
[2018-03-15 05:38] LABS: Calcium 8.4 MG/DL (8.5-10.1); Osmolality,Calculated 299.4 MOS/KG (273-304); Potassium 3.8 MMOL/L (3.5-5.1)
[2018-03-15] MEDS: LEVOTHYROXINE 75 MCG TABLET PO SCH (06:08)
[2018-03-15] MEDS: INSULIN LISPRO 100 UNIT/ML SUBCUT SCH ×4 (07:42→21:37)
[2018-03-15] MEDS: POTASSIUM CHLORIDE 8 MEQ CAPSULE PO SCH (08:45)
[2018-03-15] MEDS: DILTIAZEM CD 120 MG CAPSULE PO SCH (08:45)
[2018-03-15] MEDS: CALCIUM (CARBONATE) 500 MG TABLET PO SCH (08:45)
[2018-03-15] MEDS: ASCORBIC ACID 500 MG TABLET PO SCH (08:46)
[2018-03-15] MEDS: FERROUS SULFATE 325 MG TABLET PO SCH ×2 (08:46→21:35)
[2018-03-15] MEDS: MULTIVITAMIN (OCUVITE) TABLET PO SCH (08:46)
[2018-03-15] MEDS: GABAPENTIN 100 MG CAPSULE PO SCH ×2 (08:47→21:35)
[2018-03-15] MEDS: DOCUSATE SODIUM 100 MG CAPSULE PO SCH ×2 (08:48→21:36)
[2018-03-15] MEDS: MAGNESIUM OXIDE 400 MG TABLET PO SCH (08:48)
[2018-03-15] MEDS: CHOLECALCIFEROL 5,000 UNIT TABLET PO SCH (08:48)
[2018-03-15] MEDS: SPIRONOLACTONE 25 MG TABLET PO SCH (08:49)
[2018-03-15] MEDS: FLUTICASONE/SALMETEROL 500-50 DISKUS 14 DOSE INH SCH ×2 (08:49→21:36)
[2018-03-15] MEDS: FUROSEMIDE 80 MG TABLET PO SCH (08:49)
[2018-03-15] MEDS: PANTOPRAZOLE 40 MG TABLET PO SCH ×2 (08:49→21:36)
[2018-03-15] MEDS: INSULIN GLARGINE 100 UNIT/ML SUBCUT SCH ×2 (08:50→21:35)
[2018-03-15] MEDS: ISOSORBIDE MONONITRATE 30 MG TABLET PO SCH (08:50)
[2018-03-15] MEDS: METOPROLOL TARTRATE 50 MG TABLET PO SCH ×3 (09:23→21:37)
[2018-03-15] MEDS ORDERED: POLYETHYLENE GLYCOL POWDER 255 GM BOTTLE PO ONE (12:00)
[2018-03-15] MEDS ORDERED: BISACODYL 5 MG TABLET PO ONE (12:00)
[2018-03-15] MEDS ORDERED: ZINC OXIDE PASTE 113 GM TUBE TOP PRN (14:17)
[2018-03-15] MEDS: DICYCLOMINE 10 MG CAPSULE PO PRN (21:36)
[2018-03-15] MEDS: ATORVASTATIN 40 MG TABLET PO SCH (21:36)
[2018-03-15] MEDS: FUROSEMIDE 40 MG TABLET PO SCH (21:36)
[2018-03-16] MEDS: LEVOTHYROXINE 75 MCG TABLET PO SCH (06:24)
[2018-03-16 06:37] LABS: Basophils % 0.5 % (0.0-0.8); Eosinophils # 0.4 10*3/uL (0.0-0.87); Eosinophils % 6.1 % (0.00-10.9); Hemoglobin 7.3 GM/DL (12.0-16.0); Immature Granulocytes % 1.2 %; Immature Granulocytes Absolute 0.08 #; Lymphocytes # 1.2 10*3/uL (1.4-4.0); Mean Corpuscular HGB Conc 31.7 GM/DL (32-36); Mean Corpuscular Hemoglobin 29 PG (27-34); Mean Corpuscular Volume 91.3 FL (87-102); Mean Platelet Volume 10.7 FL (9.6-12.0); Monocytes # 0.6 10*3/uL (0.11-0.8); Monocytes % 8.8 % (1.7-12.7); Neutrophils # 4.2 10*3/uL (1.4-7.4); Neutrophils % 64.4 % (38.7-73.9); Platelet Count 158 T/CUMM (130-400); Red Blood Count 2.52 MC/CUMM (3.8-5.5); Red Cell Distribution Width 17.7 % (9.3-17.3); White Blood Count 6.5 T/CUMM (4-12)
[2018-03-16 06:54] LABS: Osmolality,Calculated 294.3 MOS/KG (273-304); Potassium 3.6 MMOL/L (3.5-5.1)
[2018-03-16] MEDS ORDERED: SODIUM CHLORIDE 0.9% 1,000 ML IV PRN (07:02)
[2018-03-16] MEDS: INSULIN LISPRO 100 UNIT/ML SUBCUT SCH ×4 (08:02→21:13)
[2018-03-16] MEDS: INSULIN GLARGINE 100 UNIT/ML SUBCUT SCH ×2 (08:03→21:12)
[2018-03-16] MEDS ORDERED: HYDROCORTISONE 100 MG VIAL IV ONE ×2 (09:00→14:36)
[2018-03-16] MEDS: METOPROLOL TARTRATE 50 MG TABLET PO SCH ×3 (11:36→21:13)
[2018-03-16] MEDS: FERROUS SULFATE 325 MG TABLET PO SCH ×2 (11:36→21:13)
[2018-03-16] MEDS: GABAPENTIN 100 MG CAPSULE PO SCH ×2 (11:36→21:12)
[2018-03-16] MEDS: FLUTICASONE/SALMETEROL 500-50 DISKUS 14 DOSE INH SCH ×2 (11:36→21:13)
[2018-03-16] MEDS: DOCUSATE SODIUM 100 MG CAPSULE PO SCH ×2 (11:36→21:13)
[2018-03-16] MEDS: PANTOPRAZOLE 40 MG TABLET PO SCH ×2 (11:37→21:13)
[2018-03-16] MEDS ORDERED: LIDOCAINE 2% 5 ML VIAL ONE (12:58)
[2018-03-16] MEDS ORDERED: PROPOFOL 200 MG/20 ML VIAL IV ONE (12:58)
[2018-03-16] MEDS: CHOLECALCIFEROL 5,000 UNIT TABLET PO SCH (13:12)
[2018-03-16] MEDS: ASCORBIC ACID 500 MG TABLET PO SCH (13:12)
[2018-03-16] MEDS: MULTIVITAMIN (OCUVITE) TABLET PO SCH (13:12)
[2018-03-16] MEDS: CALCIUM (CARBONATE) 500 MG TABLET PO SCH (13:12)
[2018-03-16] MEDS: FUROSEMIDE 80 MG TABLET PO SCH (14:06)
[2018-03-16] MEDS ORDERED: FUROSEMIDE 40 MG/4 ML VIAL ONE (14:30)
[2018-03-16] MEDS: DILTIAZEM CD 120 MG CAPSULE PO SCH (15:39)
[2018-03-16] MEDS: POTASSIUM CHLORIDE 8 MEQ CAPSULE PO SCH (15:40)
[2018-03-16] MEDS: MAGNESIUM OXIDE 400 MG TABLET PO SCH (15:40)
[2018-03-16] MEDS: SPIRONOLACTONE 25 MG TABLET PO SCH (15:40)
[2018-03-16 19:28] LABS: Hematocrit 27.1 VOL% (35.7-47.0); Hemoglobin 8.7 GM/DL (12.0-16.0)
[2018-03-16] MEDS: ATORVASTATIN 40 MG TABLET PO SCH (21:12)
[2018-03-16] MEDS: DICYCLOMINE 10 MG CAPSULE PO PRN (21:12)
[2018-03-16] MEDS: FUROSEMIDE 40 MG TABLET PO SCH (21:12)
[2018-03-17 05:50] LABS: Basophils % 0.1 % (0.0-0.8); Eosinophils % 0.1 % (0.00-10.9); Hematocrit 24.8 VOL% (35.7-47.0); Immature Granulocytes % 1.1 %; Immature Granulocytes Absolute 0.09 #; Lymphocytes # 0.9 10*3/uL (1.4-4.0); Lymphocytes % 10.3 % (21.3-54.2); Mean Corpuscular HGB Conc 32.3 GM/DL (32-36); Mean Corpuscular Hemoglobin 29 PG (27-34); Mean Corpuscular Volume 90.8 FL (87-102); Mean Platelet Volume 11.1 FL (9.6-12.0); Monocytes # 0.7 10*3/uL (0.11-0.8); Neutrophils # 6.6 10*3/uL (1.4-7.4); Neutrophils % 80.4 % (38.7-73.9); Platelet Count 160 T/CUMM (130-400); Red Blood Count 2.73 MC/CUMM (3.8-5.5); White Blood Count 8.2 T/CUMM (4-12)
[2018-03-17 06:12] LABS: Osmolality,Calculated 298.4 MOS/KG (273-304); Potassium 3.9 MMOL/L (3.5-5.1)
[2018-03-17] MEDS: LEVOTHYROXINE 75 MCG TABLET PO SCH (06:22)
[2018-03-17] MEDS ORDERED: SODIUM CHLORIDE 0.9% 1,000 ML IV PRN (08:24)
[2018-03-17] MEDS ORDERED: LIDOCAINE 2% 5 ML VIAL ONE (12:30)
[2018-03-17] MEDS ORDERED: PROPOFOL 200 MG/20 ML VIAL IV ONE (12:30)
[2018-03-17] MEDS ORDERED: FUROSEMIDE 40 MG/4 ML VIAL IV ONE (14:42)
[2018-03-17] MEDS ORDERED: HYDROCORTISONE 100 MG VIAL IV ONE ×2 (14:43→18:07)
[2018-03-17] MEDS: SPIRONOLACTONE 25 MG TABLET PO SCH (14:51)
[2018-03-17] MEDS: DILTIAZEM CD 120 MG CAPSULE PO SCH (14:51)
[2018-03-17] MEDS: MAGNESIUM OXIDE 400 MG TABLET PO SCH (14:51)
[2018-03-17] MEDS: CALCIUM (CARBONATE) 500 MG TABLET PO SCH (14:52)
[2018-03-17] MEDS: MULTIVITAMIN (OCUVITE) TABLET PO SCH (14:52)
[2018-03-17] MEDS: GABAPENTIN 100 MG CAPSULE PO SCH ×2 (14:52→20:55)
[2018-03-17] MEDS: CHOLECALCIFEROL 5,000 UNIT TABLET PO SCH (14:52)
[2018-03-17] MEDS: POTASSIUM CHLORIDE 8 MEQ CAPSULE PO SCH (14:52)
[2018-03-17] MEDS: ASCORBIC ACID 500 MG TABLET PO SCH (14:52)
[2018-03-17] MEDS: FERROUS SULFATE 325 MG TABLET PO SCH ×2 (14:53→20:55)
[2018-03-17] MEDS: DOCUSATE SODIUM 100 MG CAPSULE PO SCH ×2 (14:53→21:07)
[2018-03-17] MEDS: INSULIN GLARGINE 100 UNIT/ML SUBCUT SCH ×2 (14:53→20:56)
[2018-03-17] MEDS: INSULIN LISPRO 100 UNIT/ML SUBCUT SCH ×3 (14:53→20:55)
[2018-03-17] MEDS: FLUTICASONE/SALMETEROL 500-50 DISKUS 14 DOSE INH SCH ×2 (14:53→21:07)
[2018-03-17] MEDS: FUROSEMIDE 80 MG TABLET PO SCH (14:54)
[2018-03-17] MEDS: METOPROLOL TARTRATE 50 MG TABLET PO SCH ×3 (14:54→21:07)
[2018-03-17] MEDS: PANTOPRAZOLE 40 MG TABLET PO SCH ×2 (14:54→20:55)
[2018-03-17] MEDS: FUROSEMIDE 40 MG TABLET PO SCH (20:55)
[2018-03-17] MEDS: ATORVASTATIN 40 MG TABLET PO SCH (20:55)
[2018-03-17] MEDS ORDERED: traMADol 50 MG TABLET PO PRN (21:29)
[2018-03-18 00:52] LABS: Hematocrit 29.3 VOL% (35.7-47.0); Hemoglobin 9.3 GM/DL (12.0-16.0)
[2018-03-18 06:07] LABS: Basophils % 0.1 % (0.0-0.8); Hematocrit 28.2 VOL% (35.7-47.0); Hemoglobin 9.2 GM/DL (12.0-16.0); Immature Granulocytes % 0.8 %; Immature Granulocytes Absolute 0.07 #; Lymphocytes # 0.7 10*3/uL (1.4-4.0); Lymphocytes % 7.8 % (21.3-54.2); Mean Corpuscular HGB Conc 32.6 GM/DL (32-36); Mean Corpuscular Hemoglobin 29 PG (27-34); Mean Corpuscular Volume 89.5 FL (87-102); Mean Platelet Volume 11.2 FL (9.6-12.0); Monocytes # 0.4 10*3/uL (0.11-0.8); Monocytes % 4.4 % (1.7-12.7); Neutrophils # 7.3 10*3/uL (1.4-7.4); Neutrophils % 86.9 % (38.7-73.9); Platelet Count 137 T/CUMM (130-400); Red Blood Count 3.15 MC/CUMM (3.8-5.5); Red Cell Distribution Width 16.8 % (9.3-17.3); White Blood Count 8.4 T/CUMM (4-12)
[2018-03-18] MEDS: LEVOTHYROXINE 75 MCG TABLET PO SCH (06:09)
[2018-03-18 06:28] LABS: Calcium 7.8 MG/DL (8.5-10.1); Osmolality,Calculated 297.5 MOS/KG (273-304); Potassium 4.2 MMOL/L (3.5-5.1)
[2018-03-18] MEDS: INSULIN LISPRO 100 UNIT/ML SUBCUT SCH ×4 (09:55→20:47)
[2018-03-18] MEDS: MAGNESIUM OXIDE 400 MG TABLET PO SCH (09:57)
[2018-03-18] MEDS: INSULIN GLARGINE 100 UNIT/ML SUBCUT SCH ×2 (09:57→20:47)
[2018-03-18] MEDS: METOPROLOL TARTRATE 50 MG TABLET PO SCH ×3 (09:58→20:47)
[2018-03-18] MEDS: DILTIAZEM CD 120 MG CAPSULE PO SCH (09:58)
[2018-03-18] MEDS: MULTIVITAMIN (OCUVITE) TABLET PO SCH (09:58)
[2018-03-18] MEDS: CALCIUM (CARBONATE) 500 MG TABLET PO SCH (09:59)
[2018-03-18] MEDS: POTASSIUM CHLORIDE 8 MEQ CAPSULE PO SCH (09:59)
[2018-03-18] MEDS: GABAPENTIN 100 MG CAPSULE PO SCH ×2 (10:00→20:46)
[2018-03-18] MEDS: FUROSEMIDE 80 MG TABLET PO SCH (10:00)
[2018-03-18] MEDS: ASCORBIC ACID 500 MG TABLET PO SCH (10:01)
[2018-03-18] MEDS: FERROUS SULFATE 325 MG TABLET PO SCH ×2 (10:01→20:46)
[2018-03-18] MEDS: CHOLECALCIFEROL 5,000 UNIT TABLET PO SCH (10:01)
[2018-03-18] MEDS: PANTOPRAZOLE 40 MG TABLET PO SCH ×2 (10:02→20:46)
[2018-03-18] MEDS: SPIRONOLACTONE 25 MG TABLET PO SCH (10:02)
[2018-03-18] MEDS: DOCUSATE SODIUM 100 MG CAPSULE PO SCH ×2 (10:02→20:47)
[2018-03-18] MEDS: FLUTICASONE/SALMETEROL 500-50 DISKUS 14 DOSE INH SCH ×2 (10:05→20:47)
[2018-03-18] MEDS ORDERED: diphenhydrAMINE CAP 25 MG CAPSULE PO PRN (10:45)
[2018-03-18] MEDS: ATORVASTATIN 40 MG TABLET PO SCH (20:46)
[2018-03-18] MEDS: FUROSEMIDE 40 MG TABLET PO SCH (20:46)
[2018-03-18] MEDS: DICYCLOMINE 10 MG CAPSULE PO PRN (22:28)
[2018-03-19 05:13] LABS: Basophils % 0.2 % (0.0-0.8); Eosinophils # 0.3 10*3/uL (0.0-0.87); Eosinophils % 2.5 % (0.00-10.9); Hematocrit 26.8 VOL% (35.7-47.0); Immature Granulocytes % 0.7 %; Immature Granulocytes Absolute 0.09 #; Lymphocytes # 2.2 10*3/uL (1.4-4.0); Lymphocytes % 16.8 % (21.3-54.2); Mean Corpuscular HGB Conc 33.6 GM/DL (32-36); Mean Corpuscular Hemoglobin 30 PG (27-34); Mean Corpuscular Volume 88.7 FL (87-102); Monocytes # 1.4 10*3/uL (0.11-0.8); Monocytes % 11.1 % (1.7-12.7); Neutrophils # 8.9 10*3/uL (1.4-7.4); Neutrophils % 68.7 % (38.7-73.9); Platelet Count 147 T/CUMM (130-400); Red Blood Count 3.02 MC/CUMM (3.8-5.5); White Blood Count 12.9 T/CUMM (4-12)
[2018-03-19 05:50] LABS: Calcium 7.8 MG/DL (8.5-10.1); Osmolality,Calculated 291.4 MOS/KG (273-304); Potassium 3.7 MMOL/L (3.5-5.1)
[2018-03-19 06:56] LABS: Apearance,Urine CLEAR (Clear); Bilirubin,Urine Negative (Negative); Blood, Urine Negative (Negative); Glucose,Urine (UA) Negative (Negative); Hyaline Casts,Urine 2 /LPF (0-3); Ketones,Urine Negative (Negative); Mucus,Urine Occasional /LPF (Occasional); Nitrite,Urine Negative (Negative); Protein,Urine Negative; RBC,Urine <1 /HPF (0-4); Squamous Epithelial Cell,Urine Occasional /HPF (0-10); Urine Color Straw (Yellow); Urine Specific Gravity 1.005 (1.001-1.035); Urine Urobilinogen < 2.0 EU/DL (0.2-1.0); WBC,Urine <1 /HPF (0-6)
[2018-03-19] MEDS: ONDANSETRON 4 MG/2 ML VIAL IV PRN (07:28)
[2018-03-19] MEDS: DILTIAZEM CD 120 MG CAPSULE PO SCH ×2 (07:28→09:57)
[2018-03-19] MEDS: PANTOPRAZOLE 40 MG TABLET PO SCH ×3 (07:29→21:02)
[2018-03-19] MEDS: INSULIN LISPRO 100 UNIT/ML SUBCUT SCH ×4 (07:41→21:02)
[2018-03-19] MEDS: CHOLECALCIFEROL 5,000 UNIT TABLET PO SCH (09:55)
[2018-03-19] MEDS: FERROUS SULFATE 325 MG TABLET PO SCH ×2 (09:55→21:02)
[2018-03-19] MEDS: GABAPENTIN 100 MG CAPSULE PO SCH ×2 (09:55→21:02)
[2018-03-19] MEDS: MAGNESIUM OXIDE 400 MG TABLET PO SCH (09:55)
[2018-03-19] MEDS: SPIRONOLACTONE 25 MG TABLET PO SCH (09:56)
[2018-03-19] MEDS: POTASSIUM CHLORIDE 8 MEQ CAPSULE PO SCH (09:56)
[2018-03-19] MEDS: LEVOTHYROXINE 75 MCG TABLET PO SCH (09:56)
[2018-03-19] MEDS: FUROSEMIDE 80 MG TABLET PO SCH (09:56)
[2018-03-19] MEDS: ASCORBIC ACID 500 MG TABLET PO SCH (09:56)
[2018-03-19] MEDS: MULTIVITAMIN (OCUVITE) TABLET PO SCH (09:56)
[2018-03-19] MEDS: CALCIUM (CARBONATE) 500 MG TABLET PO SCH (09:56)
[2018-03-19] MEDS: DOCUSATE SODIUM 100 MG CAPSULE PO SCH ×2 (09:57→21:02)
[2018-03-19] MEDS: INSULIN GLARGINE 100 UNIT/ML SUBCUT SCH ×3 (09:57→21:03)
[2018-03-19] MEDS: METOPROLOL TARTRATE 50 MG TABLET PO SCH ×2 (09:57→16:41)
[2018-03-19] MEDS: FLUTICASONE/SALMETEROL 500-50 DISKUS 14 DOSE INH SCH ×3 (09:58→21:03)
[2018-03-19 11:55] LABS: Hematocrit 28.5 VOL% (35.7-47.0); Hemoglobin 9.4 GM/DL (12.0-16.0)
[2018-03-19] MEDS: cefTRIAXone 1,000 MG in SYRINGE 1 EACH IV SCH (13:29)
[2018-03-19] MEDS: ATORVASTATIN 40 MG TABLET PO SCH (21:02)
[2018-03-19] MEDS: FUROSEMIDE 40 MG TABLET PO SCH (21:02)
[2018-03-19 23:28] LABS: Hematocrit 28.3 VOL% (35.7-47.0)
[2018-03-20 04:19] LABS: Basophils % 0.4 % (0.0-0.8); Eosinophils # 0.3 10*3/uL (0.0-0.87); Eosinophils % 3.1 % (0.00-10.9); Hematocrit 26.5 VOL% (35.7-47.0); Hemoglobin 8.8 GM/DL (12.0-16.0); Immature Granulocytes % 0.6 %; Immature Granulocytes Absolute 0.05 #; Lymphocytes # 1.5 10*3/uL (1.4-4.0); Lymphocytes % 18.1 % (21.3-54.2); Mean Corpuscular HGB Conc 33.2 GM/DL (32-36); Mean Corpuscular Hemoglobin 30 PG (27-34); Mean Corpuscular Volume 89.8 FL (87-102); Mean Platelet Volume 11.3 FL (9.6-12.0); Monocytes # 0.9 10*3/uL (0.11-0.8); Monocytes % 10.3 % (1.7-12.7); Neutrophils # 5.7 10*3/uL (1.4-7.4); Neutrophils % 67.5 % (38.7-73.9); Platelet Count 133 T/CUMM (130-400); Red Blood Count 2.95 MC/CUMM (3.8-5.5); Red Cell Distribution Width 17.2 % (9.3-17.3); White Blood Count 8.4 T/CUMM (4-12)
[2018-03-20 04:35] LABS: Calcium 8.3 MG/DL (8.5-10.1); Potassium 4.1 MMOL/L (3.5-5.1)
[2018-03-20] MEDS: METOPROLOL TARTRATE 50 MG TABLET PO SCH ×4 (05:48→22:06)
[2018-03-20] MEDS: LEVOTHYROXINE 75 MCG TABLET PO SCH (06:10)
[2018-03-20] MEDS: INSULIN LISPRO 100 UNIT/ML SUBCUT SCH ×4 (08:38→22:06)
[2018-03-20] MEDS: DILTIAZEM CD 120 MG CAPSULE PO SCH (09:22)
[2018-03-20] MEDS: SPIRONOLACTONE 25 MG TABLET PO SCH (09:23)
[2018-03-20] MEDS: FUROSEMIDE 80 MG TABLET PO SCH ×2 (09:28→11:13)
[2018-03-20] MEDS: FERROUS SULFATE 325 MG TABLET PO SCH ×2 (09:30→21:29)
[2018-03-20] MEDS: INSULIN GLARGINE 100 UNIT/ML SUBCUT SCH ×2 (09:30→22:34)
[2018-03-20] MEDS: FLUTICASONE/SALMETEROL 500-50 DISKUS 14 DOSE INH SCH ×2 (09:30→22:29)
[2018-03-20] MEDS: DOCUSATE SODIUM 100 MG CAPSULE PO SCH ×2 (09:30→22:05)
[2018-03-20] MEDS: MAGNESIUM OXIDE 400 MG TABLET PO SCH (09:31)
[2018-03-20] MEDS: ASCORBIC ACID 500 MG TABLET PO SCH (09:31)
[2018-03-20] MEDS: CALCIUM (CARBONATE) 500 MG TABLET PO SCH (09:31)
[2018-03-20] MEDS: POTASSIUM CHLORIDE 8 MEQ CAPSULE PO SCH (09:31)
[2018-03-20] MEDS: CHOLECALCIFEROL 5,000 UNIT TABLET PO SCH (09:31)
[2018-03-20] MEDS: MULTIVITAMIN (OCUVITE) TABLET PO SCH (09:31)
[2018-03-20] MEDS ORDERED: SODIUM CHLORIDE 0.9% 1,000 ML IV PRN (09:48)
[2018-03-20] MEDS: GABAPENTIN 100 MG CAPSULE PO SCH ×2 (11:13→21:29)
[2018-03-20] MEDS: PANTOPRAZOLE 40 MG TABLET PO SCH ×2 (11:13→21:29)
[2018-03-20] MEDS: cefTRIAXone 1,000 MG in SYRINGE 1 EACH IV SCH (12:17)
[2018-03-20] MEDS: ONDANSETRON 4 MG/2 ML VIAL IV PRN (18:03)
[2018-03-20] MEDS: DICYCLOMINE 10 MG CAPSULE PO PRN (18:03)
[2018-03-20] MEDS ORDERED: HYDROCORTISONE 100 MG VIAL IV ONE (20:11)
[2018-03-20] MEDS ORDERED: FUROSEMIDE 40 MG/4 ML VIAL IV ONE (20:11)
[2018-03-20] MEDS: FUROSEMIDE 40 MG TABLET PO SCH (21:29)
[2018-03-20] MEDS: ATORVASTATIN 40 MG TABLET PO SCH (21:29)
[2018-03-21] MEDS ORDERED: HYDROCORTISONE 100 MG VIAL IV ONE (01:32)
[2018-03-21] MEDS ORDERED: FUROSEMIDE 40 MG/4 ML VIAL IV ONE (03:00)
[2018-03-21] MEDS: LEVOTHYROXINE 75 MCG TABLET PO SCH (06:14)
[2018-03-21 08:10] LABS: Basophils % 0.1 % (0.0-0.8); Hematocrit 29.3 VOL% (35.7-47.0); Hemoglobin 9.7 GM/DL (12.0-16.0); Immature Granulocytes % 0.9 %; Immature Granulocytes Absolute 0.08 #; Lymphocytes # 0.6 10*3/uL (1.4-4.0); Lymphocytes % 6.7 % (21.3-54.2); Mean Corpuscular HGB Conc 33.1 GM/DL (32-36); Mean Corpuscular Hemoglobin 31 PG (27-34); Mean Corpuscular Volume 92.4 FL (87-102); Monocytes # 0.2 10*3/uL (0.11-0.8); Monocytes % 1.6 % (1.7-12.7); Neutrophils # 8.4 10*3/uL (1.4-7.4); Neutrophils % 90.7 % (38.7-73.9); Platelet Count 109 T/CUMM (130-400); Red Blood Count 3.17 MC/CUMM (3.8-5.5); Red Cell Distribution Width 15.9 % (9.3-17.3); White Blood Count 9.2 T/CUMM (4-12)
[2018-03-21 08:44] LABS: Osmolality,Calculated 304.1 MOS/KG (273-304); Potassium 4.4 MMOL/L (3.5-5.1)
[2018-03-21 08:56] LABS: Band Neutrophils 1 % (0-10); Hypochromasia 1+; Lymphocytes 4 % (20-55); Segmented Neutrophils 94 % (50-85); Total Cells Counted 100
[2018-03-21 08:57] LABS: Platelet Estimate Decreased
[2018-03-21] MEDS: INSULIN GLARGINE 100 UNIT/ML SUBCUT SCH ×2 (09:08→22:19)
[2018-03-21] MEDS: DILTIAZEM CD 120 MG CAPSULE PO SCH (09:10)
[2018-03-21] MEDS: GABAPENTIN 100 MG CAPSULE PO SCH ×2 (09:11→21:46)
[2018-03-21] MEDS: FUROSEMIDE 80 MG TABLET PO SCH (09:11)
[2018-03-21] MEDS: PANTOPRAZOLE 40 MG TABLET PO SCH ×2 (09:11→21:46)
[2018-03-21] MEDS: FERROUS SULFATE 325 MG TABLET PO SCH ×2 (09:11→21:46)
[2018-03-21] MEDS: FLUTICASONE/SALMETEROL 500-50 DISKUS 14 DOSE INH SCH ×2 (09:12→22:18)
[2018-03-21] MEDS: METOPROLOL TARTRATE 50 MG TABLET PO SCH ×3 (09:12→22:09)
[2018-03-21] MEDS: SPIRONOLACTONE 25 MG TABLET PO SCH (09:12)
[2018-03-21] MEDS: MULTIVITAMIN (OCUVITE) TABLET PO SCH (09:16)
[2018-03-21] MEDS: MAGNESIUM OXIDE 400 MG TABLET PO SCH (09:16)
[2018-03-21] MEDS: POTASSIUM CHLORIDE 8 MEQ CAPSULE PO SCH (09:16)
[2018-03-21] MEDS: CALCIUM (CARBONATE) 500 MG TABLET PO SCH (09:17)
[2018-03-21] MEDS: ASCORBIC ACID 500 MG TABLET PO SCH (09:17)
[2018-03-21] MEDS: INSULIN LISPRO 100 UNIT/ML SUBCUT SCH ×5 (09:17→22:19)
[2018-03-21] MEDS: CHOLECALCIFEROL 5,000 UNIT TABLET PO SCH (09:17)
[2018-03-21] MEDS: DOCUSATE SODIUM 100 MG CAPSULE PO SCH ×2 (09:17→22:09)
[2018-03-21] MEDS: cefTRIAXone 1,000 MG in SYRINGE 1 EACH IV SCH (12:40)
[2018-03-21] MEDS: ATORVASTATIN 40 MG TABLET PO SCH (21:46)
[2018-03-21] MEDS: DICYCLOMINE 10 MG CAPSULE PO PRN (21:47)
[2018-03-22 05:24] LABS: Basophils % 0.2 % (0.0-0.8); Eosinophils # 0.3 10*3/uL (0.0-0.87); Hematocrit 24.8 VOL% (35.7-47.0); Immature Granulocytes % 0.5 %; Immature Granulocytes Absolute 0.07 #; Lymphocytes # 1.9 10*3/uL (1.4-4.0); Lymphocytes % 14.7 % (21.3-54.2); Mean Corpuscular HGB Conc 32.3 GM/DL (32-36); Mean Corpuscular Hemoglobin 30 PG (27-34); Mean Corpuscular Volume 92.9 FL (87-102); Mean Platelet Volume 11.5 FL (9.6-12.0); Monocytes % 7.5 % (1.7-12.7); Neutrophils # 9.6 10*3/uL (1.4-7.4); Neutrophils % 75.1 % (38.7-73.9); Platelet Count 103 T/CUMM (130-400); Red Blood Count 2.67 MC/CUMM (3.8-5.5); Red Cell Distribution Width 16.5 % (9.3-17.3); White Blood Count 12.8 T/CUMM (4-12)
[2018-03-22 05:58] LABS: Calcium 7.7 MG/DL (8.5-10.1); Osmolality,Calculated 296.3 MOS/KG (273-304)
[2018-03-22] MEDS: LEVOTHYROXINE 75 MCG TABLET PO SCH (06:14)
[2018-03-22] MEDS ORDERED: SODIUM CHLORIDE 0.9% 1,000 ML IV PRN (08:33)
[2018-03-22] MEDS ORDERED: FUROSEMIDE 40 MG/4 ML VIAL IV PRN (08:33)
[2018-03-22] MEDS: INSULIN GLARGINE 100 UNIT/ML SUBCUT SCH ×2 (08:55→21:36)
[2018-03-22] MEDS: FERROUS SULFATE 325 MG TABLET PO SCH ×2 (08:55→21:37)
[2018-03-22] MEDS: ASCORBIC ACID 500 MG TABLET PO SCH (08:56)
[2018-03-22] MEDS: MAGNESIUM OXIDE 400 MG TABLET PO SCH (08:57)
[2018-03-22] MEDS: GABAPENTIN 100 MG CAPSULE PO SCH ×2 (08:57→21:37)
[2018-03-22] MEDS: DILTIAZEM CD 120 MG CAPSULE PO SCH ×2 (08:57→22:55)
[2018-03-22] MEDS: MULTIVITAMIN (OCUVITE) TABLET PO SCH (08:58)
[2018-03-22] MEDS: METOPROLOL TARTRATE 50 MG TABLET PO SCH ×3 (08:58→21:40)
[2018-03-22] MEDS: CALCIUM (CARBONATE) 500 MG TABLET PO SCH (08:58)
[2018-03-22] MEDS: PANTOPRAZOLE 40 MG TABLET PO SCH ×2 (08:58→21:37)
[2018-03-22] MEDS: POTASSIUM CHLORIDE 8 MEQ CAPSULE PO SCH (08:58)
[2018-03-22] MEDS: SPIRONOLACTONE 25 MG TABLET PO SCH (08:59)
[2018-03-22] MEDS: DOCUSATE SODIUM 100 MG CAPSULE PO SCH ×2 (08:59→21:00)
[2018-03-22] MEDS: CHOLECALCIFEROL 5,000 UNIT TABLET PO SCH (08:59)
[2018-03-22] MEDS: FUROSEMIDE 80 MG TABLET PO SCH (09:00)
[2018-03-22] MEDS: FLUTICASONE/SALMETEROL 500-50 DISKUS 14 DOSE INH SCH ×2 (09:03→21:37)
[2018-03-22] MEDS: INSULIN LISPRO 100 UNIT/ML SUBCUT SCH ×4 (09:04→21:40)
[2018-03-22] MEDS: cefTRIAXone 1,000 MG in SYRINGE 1 EACH IV SCH (13:05)
[2018-03-22] MEDS ORDERED: HYDROCORTISONE 100 MG VIAL IV ONE ×2 (17:05→22:30)
[2018-03-22] MEDS ORDERED: FUROSEMIDE 40 MG/4 ML VIAL IV ONE (17:06)
[2018-03-22] MEDS: ATORVASTATIN 40 MG TABLET PO SCH (21:37)
[2018-03-22] MEDS: DICYCLOMINE 10 MG CAPSULE PO PRN (21:37)
[2018-03-23] MEDS: LEVOTHYROXINE 75 MCG TABLET PO SCH (06:50)
[2018-03-23 08:48] LABS: Basophils % 0.2 % (0.0-0.8); Hemoglobin 9.6 GM/DL (12.0-16.0); Immature Granulocytes % 1.1 %; Immature Granulocytes Absolute 0.14 #; Lymphocytes # 0.5 10*3/uL (1.4-4.0); Lymphocytes % 4.2 % (21.3-54.2); Mean Corpuscular HGB Conc 33.1 GM/DL (32-36); Mean Corpuscular Hemoglobin 30 PG (27-34); Mean Corpuscular Volume 91.8 FL (87-102); Mean Platelet Volume 11.2 FL (9.6-12.0); Monocytes # 0.2 10*3/uL (0.11-0.8); Monocytes % 1.3 % (1.7-12.7); Neutrophils # 11.8 10*3/uL (1.4-7.4); Neutrophils % 93.2 % (38.7-73.9); Platelet Count 100 T/CUMM (130-400); Red Blood Count 3.16 MC/CUMM (3.8-5.5); White Blood Count 12.6 T/CUMM (4-12)
[2018-03-23 09:05] LABS: Calcium 8.2 MG/DL (8.5-10.1); Osmolality,Calculated 300.7 MOS/KG (273-304); Potassium 4.8 MMOL/L (3.5-5.1)
[2018-03-23 09:12] LABS: Lymphocytes 3 % (20-55); Segmented Neutrophils 96 % (50-85); Total Cells Counted 100
[2018-03-23 09:13] LABS: Anisocytosis 1+; Microcytosis 1+; Platelet Estimate Decreased
[2018-03-23] MEDS: INSULIN LISPRO 100 UNIT/ML SUBCUT SCH ×4 (10:38→21:21)
[2018-03-23] MEDS: INSULIN GLARGINE 100 UNIT/ML SUBCUT SCH ×2 (10:39→21:30)
[2018-03-23] MEDS: MULTIVITAMIN (OCUVITE) TABLET PO SCH (10:41)
[2018-03-23] MEDS: FUROSEMIDE 80 MG TABLET PO SCH (10:42)
[2018-03-23] MEDS: CHOLECALCIFEROL 5,000 UNIT TABLET PO SCH (10:42)
[2018-03-23] MEDS: MAGNESIUM OXIDE 400 MG TABLET PO SCH (10:42)
[2018-03-23] MEDS: FERROUS SULFATE 325 MG TABLET PO SCH ×2 (10:42→21:21)
[2018-03-23] MEDS: POTASSIUM CHLORIDE 8 MEQ CAPSULE PO SCH (10:42)
[2018-03-23] MEDS: GABAPENTIN 100 MG CAPSULE PO SCH ×2 (10:43→21:27)
[2018-03-23] MEDS: PANTOPRAZOLE 40 MG TABLET PO SCH ×2 (10:43→21:21)
[2018-03-23] MEDS: DILTIAZEM CD 120 MG CAPSULE PO SCH ×2 (10:44→21:20)
[2018-03-23] MEDS: SPIRONOLACTONE 25 MG TABLET PO SCH (10:44)
[2018-03-23] MEDS: ASCORBIC ACID 500 MG TABLET PO SCH (10:44)
[2018-03-23] MEDS: METOPROLOL TARTRATE 50 MG TABLET PO SCH ×3 (10:45→21:21)
[2018-03-23] MEDS: FLUTICASONE/SALMETEROL 500-50 DISKUS 14 DOSE INH SCH ×2 (10:45→21:25)
[2018-03-23] MEDS: DOCUSATE SODIUM 100 MG CAPSULE PO SCH ×2 (10:45→21:24)
[2018-03-23] MEDS: CALCIUM (CARBONATE) 500 MG TABLET PO SCH (10:55)
[2018-03-23] MEDS: cefTRIAXone 1,000 MG in SYRINGE 1 EACH IV SCH (13:33)
[2018-03-23] MEDS: ONDANSETRON 4 MG/2 ML VIAL IV PRN (21:20)
[2018-03-23] MEDS: DICYCLOMINE 10 MG CAPSULE PO PRN (21:21)
[2018-03-23] MEDS: ATORVASTATIN 40 MG TABLET PO SCH (21:21)
[2018-03-24 06:15] LABS: Basophils % 0.1 % (0.0-0.8); Eosinophils # 0.2 10*3/uL (0.0-0.87); Hematocrit 26.6 VOL% (35.7-47.0); Hemoglobin 8.9 GM/DL (12.0-16.0); Lymphocytes # 1.3 10*3/uL (1.4-4.0); Lymphocytes % 6.6 % (21.3-54.2); Mean Corpuscular HGB Conc 33.5 GM/DL (32-36); Mean Corpuscular Hemoglobin 31 PG (27-34); Mean Corpuscular Volume 91.1 FL (87-102); Mean Platelet Volume 11.7 FL (9.6-12.0); Monocytes # 1.5 10*3/uL (0.11-0.8); Monocytes % 7.8 % (1.7-12.7); NRBC # 0.02 10*3/uL; Neutrophils # 16.4 10*3/uL (1.4-7.4); Neutrophils % 83.5 % (38.7-73.9); Platelet Count 126 T/CUMM (130-400); Red Blood Count 2.92 MC/CUMM (3.8-5.5); Red Cell Distribution Width 17.1 % (9.3-17.3); White Blood Count 19.7 T/CUMM (4-12)
[2018-03-24] MEDS: LEVOTHYROXINE 75 MCG TABLET PO SCH (06:20)
[2018-03-24 06:42] LABS: Calcium 8.3 MG/DL (8.5-10.1); Osmolality,Calculated 303.7 MOS/KG (273-304)
[2018-03-24] MEDS ORDERED: SODIUM CHLORIDE 0.9% 1,000 ML IV PRN (10:09)
[2018-03-24] MEDS ORDERED: FUROSEMIDE 40 MG/4 ML VIAL IV ONE (10:10)
[2018-03-24] MEDS ORDERED: HYDROCORTISONE 100 MG VIAL IV ONE (10:11)
[2018-03-24 10:35] LABS: Hematocrit 26.5 VOL% (35.7-47.0); Hemoglobin 9.1 GM/DL (12.0-16.0)
[2018-03-24] MEDS: INSULIN LISPRO 100 UNIT/ML SUBCUT SCH ×4 (10:41→21:23)
[2018-03-24] MEDS: FLUTICASONE/SALMETEROL 500-50 DISKUS 14 DOSE INH SCH ×2 (10:42→21:25)
[2018-03-24] MEDS: SPIRONOLACTONE 25 MG TABLET PO SCH (10:43)
[2018-03-24] MEDS: DOCUSATE SODIUM 100 MG CAPSULE PO SCH ×2 (10:43→21:25)
[2018-03-24] MEDS: DILTIAZEM CD 120 MG CAPSULE PO SCH (10:43)
[2018-03-24] MEDS: INSULIN GLARGINE 100 UNIT/ML SUBCUT SCH ×2 (10:44→21:23)
[2018-03-24] MEDS: FERROUS SULFATE 325 MG TABLET PO SCH ×2 (10:44→21:24)
[2018-03-24] MEDS: MAGNESIUM OXIDE 400 MG TABLET PO SCH (10:45)
[2018-03-24] MEDS: FUROSEMIDE 80 MG TABLET PO SCH (10:45)
[2018-03-24] MEDS: POTASSIUM CHLORIDE 8 MEQ CAPSULE PO SCH (10:45)
[2018-03-24] MEDS: GABAPENTIN 100 MG CAPSULE PO SCH ×2 (10:45→21:24)
[2018-03-24] MEDS: METOPROLOL TARTRATE 50 MG TABLET PO SCH ×2 (10:45→16:47)
[2018-03-24] MEDS: MULTIVITAMIN (OCUVITE) TABLET PO SCH (10:45)
[2018-03-24] MEDS: PANTOPRAZOLE 40 MG TABLET PO SCH ×2 (10:46→21:24)
[2018-03-24] MEDS: CALCIUM (CARBONATE) 500 MG TABLET PO SCH (10:46)
[2018-03-24] MEDS: CHOLECALCIFEROL 5,000 UNIT TABLET PO SCH (10:46)
[2018-03-24] MEDS: ASCORBIC ACID 500 MG TABLET PO SCH (10:46)
[2018-03-24] MEDS ORDERED: METOCLOPRAMIDE 10 MG/2 ML VIAL IV ONE (12:20)
[2018-03-24] MEDS: cefTRIAXone 1,000 MG in SYRINGE 1 EACH IV SCH (12:58)
[2018-03-24 13:17] LABS: Neutrophils,Peritoneal Fluid 45 %
[2018-03-24 13:18] LABS: RBC,Peritoneal Fluid 771 T/CUMM
[2018-03-24] MEDS: ZINC OXIDE PASTE 113 GM TUBE TOP SCH ×2 (13:47→21:24)
[2018-03-24] MEDS: LACTULOSE 20 GM/30 ML UDCUP PO SCH ×3 (14:46→21:24)
[2018-03-24] MEDS ORDERED: DIGOXIN 0.5 MG/2 ML AMP IV ONE (14:48)
[2018-03-24 15:09] LABS: ABG HCO3 25.3 MMOL/L (20-26); ABG Oxygen Saturation 97.5 % (95-100); ABG PCO2 32.5 MM HG (35-48); ABG PH 7.479 (7.35-7.45); ABG PO2 86.3 MM HG (80-95)
[2018-03-24] MEDS: DILTIAZEM INJ 100 MG in SODIUM CHLORIDE 0.9% 100 ML IV SCH (15:50)
[2018-03-24] MEDS ORDERED: SODIUM CHLORIDE 0.9% 500 ML IV ONE (16:09)
[2018-03-25] MEDS ORDERED: HYDROCORTISONE 100 MG VIAL IV ONE
[2018-03-25] MEDS: LACTULOSE 20 GM/30 ML UDCUP PO SCH ×5 (01:49→21:12)
[2018-03-25] MEDS ORDERED: FUROSEMIDE 40 MG/4 ML VIAL IV ONE (02:30)
[2018-03-25 03:52] LABS: ABG Base Excess -4.5 MMOL/L (-2.5-2.5); ABG HCO3 19.6 MMOL/L (20-26); ABG Oxygen Saturation 97.9 % (95-100); ABG PCO2 32.3 MM HG (35-48); ABG PO2 119.5 MM HG (80-95); ABG TCO2 20.6 MMOL/L (23-27)
[2018-03-25] MEDS: METOPROLOL TARTRATE 50 MG TABLET PO SCH (04:15)
[2018-03-25] MEDS: LEVOTHYROXINE 100 MCG TABLET PO SCH (06:16)
[2018-03-25 07:54] LABS: Basophils % 0.1 % (0.0-0.8); Hematocrit 32.4 VOL% (35.7-47.0); Hemoglobin 10.7 GM/DL (12.0-16.0); Immature Granulocytes % 1.2 %; Immature Granulocytes Absolute 0.27 #; Lymphocytes # 0.8 10*3/uL (1.4-4.0); Lymphocytes % 3.5 % (21.3-54.2); Mean Corpuscular Hemoglobin 30 PG (27-34); Mean Platelet Volume 11.9 FL (9.6-12.0); Monocytes # 1.4 10*3/uL (0.11-0.8); Monocytes % 6.4 % (1.7-12.7); NRBC # 0.03 10*3/uL; Neutrophils % 88.8 % (38.7-73.9); Platelet Count 126 T/CUMM (130-400); Red Blood Count 3.56 MC/CUMM (3.8-5.5); Red Cell Distribution Width 17.6 % (9.3-17.3); White Blood Count 22.5 T/CUMM (4-12)
[2018-03-25 08:06] LABS: Calcium 8.4 MG/DL (8.5-10.1); Osmolality,Calculated 306.5 MOS/KG (273-304)
[2018-03-25 08:49] LABS: ABG Base Excess -3.3 MMOL/L (-2.5-2.5); ABG HCO3 21.6 MMOL/L (20-26); ABG Oxygen Saturation 98.5 % (95-100); ABG PCO2 34.2 MM HG (35-48); ABG PH 7.394 (7.35-7.45); ABG TCO2 18.8 MMOL/L (23-27); Pt O2 Delivery Device Venturi Mask
[2018-03-25] MEDS ORDERED: SODIUM POLYSTYRENE SULFATE 15 GM/60 ML BOTTLE PO ONE (08:59)
[2018-03-25] MEDS: INSULIN LISPRO 100 UNIT/ML SUBCUT SCH ×3 (09:06→21:11)
[2018-03-25] MEDS: INSULIN GLARGINE 100 UNIT/ML SUBCUT SCH (09:07)
[2018-03-25] MEDS: FUROSEMIDE 80 MG TABLET PO SCH (09:09)
[2018-03-25] MEDS: DOCUSATE SODIUM 100 MG CAPSULE PO SCH (09:18)
[2018-03-25] MEDS: FLUTICASONE/SALMETEROL 500-50 DISKUS 14 DOSE INH SCH (09:19)
[2018-03-25] MEDS: DILTIAZEM INJ 100 MG in SODIUM CHLORIDE 0.9% 100 ML IV SCH (09:24)
[2018-03-25] MEDS: PANTOPRAZOLE 40 MG TABLET PO SCH (09:27)
[2018-03-25] MEDS: CALCIUM (CARBONATE) 500 MG TABLET PO SCH (09:38)
[2018-03-25] MEDS: CHOLECALCIFEROL 5,000 UNIT TABLET PO SCH (09:38)
[2018-03-25] MEDS: FERROUS SULFATE 325 MG TABLET PO SCH (09:39)
[2018-03-25] MEDS: MAGNESIUM OXIDE 400 MG TABLET PO SCH (09:39)
[2018-03-25] MEDS: MULTIVITAMIN (OCUVITE) TABLET PO SCH (09:39)
[2018-03-25] MEDS ORDERED: LIDOCAINE 1% 20 ML VIAL MISC INJ ONE (10:45)
[2018-03-25] MEDS ORDERED: LIDOCAINE 2% 20 ML VIAL MISC INJ ONE (10:45)
[2018-03-25] MEDS ORDERED: LIDOCAINE 2% VISCOUS 100 ML BOTTLE SWISH/SPIT ONE (10:45)
[2018-03-25 11:25] LABS: Lymphocytes 5 % (20-55); Segmented Neutrophils 91 % (50-85); Total Cells Counted 100
[2018-03-25 11:26] LABS: Hypochromasia 1+; Platelet Estimate Decreased; Polychromasia Slight
[2018-03-25] MEDS: cefTRIAXone 1,000 MG in SYRINGE 1 EACH IV SCH (21:08)
[2018-03-25] MEDS: miSOPROStol 200 MCG TABLET PO SCH ×2 (21:08→21:12)
[2018-03-25] MEDS: ZINC OXIDE PASTE 113 GM TUBE TOP SCH (21:09)
[2018-03-25] MEDS: ALBUMIN 25% 12.5 GM in PREMIX 1 EACH IV SCH (21:09)
[2018-03-26 03:49] LABS: ABG Base Excess 1.1 MMOL/L (-2.5-2.5); ABG PCO2 32.3 MM HG (35-48); ABG PH 7.488 (7.35-7.45); ABG PO2 113.2 MM HG (80-95); ABG TCO2 24.9 MMOL/L (23-27); Allen Test Positive; Pt O2 Delivery Device Venturi Mask
[2018-03-26] MEDS: DILTIAZEM INJ 100 MG in SODIUM CHLORIDE 0.9% 100 ML IV SCH (05:01)
[2018-03-26] MEDS: FLUTICASONE/SALMETEROL 500-50 DISKUS 14 DOSE INH SCH ×2 (05:02→08:54)
[2018-03-26] MEDS: DOCUSATE SODIUM 100 MG CAPSULE PO SCH ×2 (05:02→08:52)
[2018-03-26] MEDS: PANTOPRAZOLE 40 MG TABLET PO SCH ×2 (05:03→08:55)
[2018-03-26] MEDS: INSULIN LISPRO 100 UNIT/ML SUBCUT SCH ×3 (05:03→13:31)
[2018-03-26] MEDS: ZINC OXIDE PASTE 113 GM TUBE TOP SCH ×2 (05:03→10:48)
[2018-03-26] MEDS: ALBUMIN 25% 12.5 GM in PREMIX 1 EACH IV SCH ×2 (05:03→06:10)
[2018-03-26] MEDS: INSULIN GLARGINE 100 UNIT/ML SUBCUT SCH ×2 (05:03→09:12)
[2018-03-26] MEDS: FERROUS SULFATE 325 MG TABLET PO SCH ×2 (05:03→08:53)
[2018-03-26] MEDS: miSOPROStol 200 MCG TABLET PO SCH ×3 (05:03→13:31)
[2018-03-26] MEDS: LACTULOSE 20 GM/30 ML UDCUP PO SCH ×3 (05:04→10:19)
[2018-03-26] MEDS ORDERED: MORPHINE 4 MG/1 ML VIAL IV PRN (06:08)
[2018-03-26] MEDS: LEVOTHYROXINE 100 MCG TABLET PO SCH (06:10)
[2018-03-26] MEDS: CALCIUM (CARBONATE) 500 MG TABLET PO SCH (08:55)
[2018-03-26] MEDS: MULTIVITAMIN (OCUVITE) TABLET PO SCH (08:55)
[2018-03-26] MEDS: CHOLECALCIFEROL 5,000 UNIT TABLET PO SCH (08:56)
[2018-03-26] MEDS ORDERED: DIGOXIN 0.5 MG/2 ML AMP IV ONE (09:48)
[2018-03-26] MEDS: MAGNESIUM OXIDE 400 MG TABLET PO SCH (10:20)
[2018-03-26] MEDS: FUROSEMIDE 80 MG TABLET PO SCH (10:20)
[2018-03-26] MEDS: cefTRIAXone 1,000 MG in SYRINGE 1 EACH IV SCH (13:30)
[2018-03-26] MEDS: MORPHINE 4 MG/1 ML VIAL IV PRN ×3 (15:45→21:11)
[2018-03-27] MEDS: MORPHINE 4 MG/1 ML VIAL IV PRN ×4 (04:15→17:24)
[2018-03-27] MEDS: ZINC OXIDE PASTE 113 GM TUBE TOP SCH ×2 (05:00→15:22)
[2018-03-27 18:28] VITALS: BP 56/31
== END 2018-03-27 19:24 | disposition expired | DRG 377 ==
LOC: N.TELEN 11:53 → N.CC 03-24 10:23 → N.5E 03-27 18:09
PROVIDERS: ADMIT Internal Medicine; ATTEND Internal Medicine